=== PATIENT | female | born 1960 | race American Indian/Alaskan Native ===

== ENCOUNTER 2016-09-17 18:14 | Inpatient (IN) | payer MEDICARE ==
[2016-09-17 19:39] LABS: Basophils % (Auto) 1.3 % (0.0-1.8); Eosinophils % (Auto) 0.4 % (0.0-4.3); Hemoglobin 16.2 gm/dl (10.1-14.3); Mean Corpuscular HGB Conc 34 % (30-34); Mean Corpuscular Hemoglobin 34 pg (28-32); Mean Corpuscular Volume 99 fl (79-97); Platelet Count 127 K/mm3 (140-440); Red Blood Count 4.84 M/mm3 (3.65-5.03); Red Cell Distribution Width 13.5 % (13.2-15.2); White Blood Count 4.6 K/mm3 (4.5-11.0)
[2016-09-17 19:49] LABS: INR 1.25 (0.87-1.13)
[2016-09-17 19:50] LABS: Partial Thromboplastin Time 26.2 Sec. (24.2-36.6)
[2016-09-17 19:52] LABS: Anion Gap 23 mmol/L; BUN/Creatinine Ratio 15.83; Blood Urea Nitrogen 19 mg/dL (7-17); Carbon Dioxide 21 mmol/L (22-30); Chloride 94.3 mmol/L (98-107); Glucose 88 mg/dL (65-100); Potassium 3.5 mmol/L (3.6-5.0); Sodium 135 mmol/L (137-145)
[2016-09-17] MEDS ORDERED: BENADRYL ONE (20:40)
--- NOTE | 2016-09-17 21:14 | Cat Scan Report ---
FINAL REPORT PROCEDURE: CT ANGIO CHEST TECHNIQUE: Computerized tomographic angiography of the chest was performed after the IV injection of iodinated nonionic contrast including image processing. The image data was postprocessed using 2-dimensional multiplanar reformatted (MPR) and 3-dimensional (MIP and/or volume rendered) techniques. HISTORY: Chest pain COMPARISON: No prior studies are available for comparison. FINDINGS: Heart and pericardium: No pericardial effusion or thickening. The heart is mildly enlarged. Thoracic aorta: Mild atherosclerotic calcification. No aneurysm or dissection. Pulmonary vasculature: The main pulmonary artery is prominent in caliber.. Lymph nodes: No enlarged thoracic lymph nodes. Lungs: Normal. Pleural space: No effusion, thickening, or pneumothorax. Musculoskeletal structures: No significant abnormality. Upper abdominal structures: No significant abnormality. IMPRESSION: No evidence of pulmonary emboli. The main pulmonary artery is prominent in caliber, which can be seen with pulmonary arterial hypertension
[2016-09-17] MEDS ORDERED: BENADRYL IV ONE (21:18)
[2016-09-17] MEDS ORDERED: LASIX IV ONE (22:05)
[2016-09-17] MEDS ORDERED: NITRO-BID 2% TP ONE (22:05)
[2016-09-17] MEDS ORDERED: ASPIRIN PO ONE (22:14)
--- NOTE | 2016-09-17 22:14 | Emergency Department Report ---
ED Chest Pain HPI - General Chief Complaint: Chest Pain Stated Complaint: CHEST PAIN Time Seen by Provider: 09/17/16 18:58 Source: patient, EMS Mode of arrival: Stretcher Limitations: No Limitations - History of Present Illness MD Complaint: chest pain -: Gradual Onset: during rest, during exertion, awoke with symptoms Pain Location: substernal, left chest Pain Radiation: none Severity: moderate Severity scale (0 -10): 7 Quality: tightness, aching, heaviness Consistency: constant Improves With: nothing Worsens With: nothing re: dyspnea. denies: nausea, vomting, diaphoresis Other Symptoms: denies: cough, fever, syncope, rash, acid taste in mouth, leg swelling, palpitations, burping Treatments Prior to Arrival: none - Related Data On Oral Contraceptives: No Previous Rx's Medication Instructions Recorded Last Taken Type Cyclobenzaprine HCl [FLEXERIL] 5 mg PO TID #21 tablet 01/23/13 01/26/13 10:00 Rx 5 Hydrochlorothiazide [HCTZ] 25 mg PO QDAY #30 tablet 01/27/13 01/26/13 19:00 Rx Metoprolol [Lopressor TAB] 50 mg PO BID #60 tablet 01/27/13 01/29/13 10:00 Rx ALPRAZolam [Xanax TAB] 0.5 mg PO Q6H PRN #60 tablet 02/23/13 Unknown Rx Budesonide [Pulmicort Respules] 0.5 mg IH Q12HRT #60 nebu 02/23/13 Unknown Rx Ipratropium/Albuterol Sulfate 1 ampul IH Q6HRT #100 ampul.neb 02/23/13 Unknown Rx [DUONEB *Not for PRN Use*] Lisinopril [Zestril TAB] 10 mg PO BID #60 tablet 02/23/13 Unknown Rx Metoprolol [Lopressor TAB] 50 mg PO BID #60 tablet 02/23/13 Unknown Rx Morphine ER [Ms Contin ER] 15 mg PO Q8HR #30 tablet 02/23/13 Unknown Rx Potassium Chloride [K-Dur] 10 meq PO QDAY #30 tablet 02/23/13 Unknown Rx guaiFENesin [Robitussin] 200 mg PO Q4H PRN #100 oral.liqd 02/23/13 Unknown Rx oxyCODONE /ACETAMINOPHEN [Percocet 1 tab PO Q4H PRN #30 tablet 02/23/13 Unknown Rx 5/325 mg] Allergies Allergy/AdvReac Type Severity Reaction Status Date / Time Iodinated Contrast Media - Allergy Hives Verified 01/22/13 18:53 IV Dye Heart Score - HEART Score History: Moderately suspicious EKG: Non-specific Age: 45-65 Risk factors: 1-2 risk factors Troponin: < normal limit HEART Score: 4 ED Review of Systems ROS: Stated complaint: CHEST PAIN Other details as noted in HPI Comment: All other systems reviewed and negative ED Past Medical Hx - Past Medical History Previous Medical History?: Yes Hx Hypertension: Yes Hx Heart Attack/AMI: No Hx Congestive Heart Failure: Yes Hx Diabetes: Yes Hx Deep Vein Thrombosis: Yes Hx Pulmonary Embolism: Yes Hx Liver Disease: No Hx Renal Disease: Yes (recent ARF with rhabdomyolysis but currently resolved ) Hx Sickle Cell Disease: No Hx Seizures: No Hx Asthma: Yes (pt states no but has been using inhaler ) Hx COPD: No Hx HIV: No Additional medical history: AAA, afib - Surgical History Hx Pacemaker: No Hx Internal Defibrillator: No Additional Surgical History: AAA, blood clot in right leg, left rotator cuff surgery, torn meniscus in left knee - Social History Smoking Status: Current Some Day Smoker Substance Use Type: Alcohol - Medications Home Medications: Home Medications Medication Instructions Recorded Confirmed Last Taken Type Cyclobenzaprine HCl [FLEXERIL] 5 mg PO TID #21 tablet 01/23/13 01/30/13 10:00 Rx 5 Hydrochlorothiazide [HCTZ] 25 mg PO QDAY #30 tablet 01/27/13 01/30/13 01/26/13 19:00 Rx Metoprolol [Lopressor TAB] 50 mg PO BID #60 tablet 01/27/13 01/30/13 01/29/13 10 :00 Rx ALPRAZolam [Xanax TAB] 0.5 mg PO Q6H PRN #60 tablet 02/23/13 Unknown Rx Budesonide [Pulmicort Respules] 0.5 mg IH Q12HRT #60 nebu 02/23/13 Unknown Rx Ipratropium/Albuterol Sulfate 1 ampul IH Q6HRT #100 ampul.neb 02/23/13 Unknown Rx [DUONEB *Not for PRN Use*] Lisinopril [Zestril TAB] 10 mg PO BID #60 tablet 02/23/13 Unknown Rx Metoprolol [Lopressor TAB] 50 mg PO BID #60 tablet 02/23/13 Unknown Rx Morphine ER [Ms Contin ER] 15 mg PO Q8HR #30 tablet 02/23/13 Unknown Rx Potassium Chloride [K-Dur] 10 meq PO QDAY #30 tablet 02/23/13 Unknown Rx guaiFENesin [Robitussin] 200 mg PO Q4H PRN #100 oral.liqd 02/23/13 Unknown Rx oxyCODONE /ACETAMINOPHEN [Percocet 1 tab PO Q4H PRN #30 tablet 02/23/13 Unknown Rx 5/325 mg] ED Physical Exam - General Limitations: No Limitations General appearance: alert, in no apparent distress - Head Head exam: Present: atraumatic, normocephalic - Eye Eye exam: Present: normal appearance - ENT ENT exam: Present: mucous membranes moist - Neck Neck exam: Present: normal inspection - Respiratory Respiratory exam: Present: normal lung sounds bilaterally. Absent: respiratory distress, wheezes, rales - Cardiovascular Cardiovascular Exam: Present: regular rate, normal rhythm. Absent: systolic murmur, diastolic murmur, rubs, gallop - GI/Abdominal GI/Abdominal exam: Present: soft, normal bowel sounds - Extremities Exam Extremities exam: Present: normal inspection - Back Exam Back exam: Present: normal inspection - Neurological Exam Neurological exam: Present: alert, oriented X3 - Psychiatric Psychiatric exam: Present: normal affect, normal mood - Skin Skin exam: Present: warm, dry, intact, normal color. Absent: rash ED Course Vital Signs 09/17/16 09/17/16 09/17/16 18:34 18:40 18:48 Temperature 98.7 F Pulse Rate 95 H Respiratory 22 Rate Blood Pressure 151/78 151/78 O2 Sat by Pulse 98 97 98 Oximetry 09/17/16 09/17/16 09/17/16 18:50 19:00 19:10 Temperature Pulse Rate 88 Respiratory 25 H Rate Blood Pressure 152/83 146/64 146/64 O2 Sat by Pulse 97 97 98 Oximetry 09/17/16 09/17/16 09/17/16 19:20 19:30 19:40 Temperature Pulse Rate 95 H 87 87 Respiratory 30 H 25 H 26 H Rate Blood Pressure 155/68 144/76 144/76 O2 Sat by Pulse 98 98 Oximetry 09/17/16 09/17/16 09/17/16 19:50 20:00 20:31 Temperature 98.3 F Pulse Rate Respiratory 17 15 17 Rate Blood Pressure 142/74 134/75 O2 Sat by Pulse 98 96 Oximetry DAVE score - Dave Score Age > 65: (0) No Aspirin use within the Past 7 Days: (0) No 3 or more CAD Risk Factors: (1) Yes 2 or more Angina events in past 24 hrs: (1) Yes Known CAD with more than 50% Stenosis: (1) Yes Elevated Cardiac Markers: (0) No ST Deviation Greater than 0.5mm: (0) No DAVE Score: 3 ED Medical Decision Making - Lab Data Result diagrams: 09/17/16 19:22 09/17/16 19:22 - EKG Data -: EKG Interpreted by Me - EKG Data Interpretation: no acute changes - Radiology Data Radiology results: report reviewed, image reviewed - Medical Decision Making patient will need admission for pulmonary edema and chf , enzymes negative and chest ct negative , talked and discuss case with hospitalist and agree with plan for admission' Critical care time in (mins) excluding proc time.: 45 Critical care attestation.: If time is entered above; I have spent that time in minutes in the direct care of this critically ill patient, excluding procedure time. ED Disposition Clinical Impression: CHF (congestive heart failure), DVT prophylaxis, Chest pain Disposition: OP ADMIT IP TO THIS HOSP Is pt being admited?: Yes Does the pt Need Aspirin: Yes Condition: Good Instructions: Chest Pain (ED) Referrals: PRIMARY CARE, [Primary Care Provider] - 3-5 Days Time of Disposition: 22:14
--- NOTE | 2016-09-17 22:58 | History and Physical Report ---
History of Present Illness Date of examination: 09/17/16 Date of admission: 09/17/16 Chief complaint: Chest pain and shortness of breath History of present illness: Patient is 56-year-old with history of CHF, diabetes, hypertension,abdominal aortic aneurysm s/p repair. She presents with chest pain and shortness of breath for 2 days. Chest pain is 6 out of 10, sharp, midsternal pain with no radiation. Shortness of breath is present sometimes at rest and worse on exertion. She has a chronic extensive cardiac history but states she has not taken any of her medications in more than 2 years. In emergency department she was found to have CHF exacerbation. She was given Lasix and is being admitted for further management. Past History Past Medical History: CAD, diabetes, DVT, heart failure, hypertension, other ( AAA s/p repair, PTSD, Depression) Past Surgical History: hysterectomy, Other (AAA repair in 2008, rotator cuff surgery, knee surgery) Social history: single, smoking, alcohol abuse, full code Family history: hypertension, other (Mother AAA) Medications and Allergies Allergies Allergy/AdvReac Type Severity Reaction Status Date / Time Iodinated Contrast Media - Allergy Hives Verified 01/22/13 18:53 IV Dye Review of Systems All systems: negative (no headache, no fever, no cough, no abdominal pain. All other systems reviewed and are negative) Exam - Physical Exam Narrative exam: Gen appearance: Not in acute distress HEENT: normocephalic, atraumatic Neck:supple, no JVD, DEN Lungs: Bibasilar crackles, no wheezes Heart :S1 and S2 regular, no murmurs, rubs or gallop Abdomen: Soft, non-tender, non-distended, normal bowel sounds. Extremities : No edema no clubbing or cyanosis Neuro: Awake, alert oriented 3, normal speech, no focal neurological signs - Constitutional Vitals: Temp Pulse Resp BP Pulse Ox 98.3 F 88 17 136/73 96 09/17/16 20:31 09/17/16 22:25 09/17/16 20:31 09/17/16 22:25 09/17/16 20:31 Results - Labs CBC & Chem 7: 09/18/16 04:02 09/18/16 04:02 Labs: Abnormal lab results 09/17/16 09/17/16 09/17/16 Range/Units 19:22 19:22 19:22 Hgb 16.2 H (10.1-14.3) gm/dl Hct 48.0 H (30.3-42.9) % MCV 99 H (79-97) fl MCH 34 H (28-32) pg Plt Count 127 L (140-440) K/mm3 Wallace % (Auto) 8.0 H (0.0-7.3) % PT 15.6 H (12.2-14.9) Sec. INR 1.25 H (0.87-1.13) Sodium 135 L (137-145) mmol/L Potassium 3.5 L (3.6-5.0) mmol/L Chloride 94.3 L (98-107) mmol/L Carbon Dioxide 21 L (22-30) mmol/L BUN 19 H (7-17) mg/dL NT-Pro-B Natriuret Pep (0-900) pg/mL 09/17/16 Range/Units 19:22 Hgb (10.1-14.3) gm/dl Hct (30.3-42.9) % MCV (79-97) fl MCH (28-32) pg Plt Count (140-440) K/mm3 Wallace % (Auto) (0.0-7.3) % PT (12.2-14.9) Sec. INR (0.87-1.13) Sodium (137-145) mmol/L Potassium (3.6-5.0) mmol/L Chloride (98-107) mmol/L Carbon Dioxide (22-30) mmol/L BUN (7-17) mg/dL NT-Pro-B Natriuret Pep 2075 H (0-900) pg/mL Assessment and Plan Chest pain. To rule out acute coronary syndrome. Admit to telemetry. Troponins negative. Initial Aspirin given in ambulance. Acute on chronic systolic heart failure. She presented shortness of breath. Give Lasix IV. Lopressor po, Lisinopril. Obtain echocardiogram. Consult cardiology. Diabetes mellitus type II. Check hemoglobin A1c. Fingerstick glucose before every meal and at bedtime. Patient states he has not been on any medications for more than 2 years. Hypertension. Give metoprolol, Lisinopril. Hyponatremia. Recheck in am Hypokalemia. Replace orally, and recheck Abdominal aortic aneurysm, s/p repair in 2008 DVT prophylaxis with heparin Full CODE STATUS Medical non-compliance. I discussed with her the importance of compliance. Patient had not taken her medications in more than 2 years
[2016-09-17] MEDS ORDERED: ZOFRAN IV PRN (23:00)
[2016-09-17] MEDS ORDERED: TYLENOL PO PRN (23:00)
[2016-09-17] MEDS ORDERED: ALUM-MAG HYDROX-SIMETH 200-200-20MG/5ML PO PRN (23:00)
[2016-09-17] MEDS ORDERED: SODIUM CHLORIDE FLUSH SYRINGE 10 ML IV PRN (23:06)
[2016-09-17] MEDS ORDERED: NITROSTAT SL PRN (23:06)
[2016-09-18] MEDS: MORPHINE IV PRN ×2 (00:17→07:03)
[2016-09-18] MEDS ORDERED: AMBIEN PO ONE (02:27)
[2016-09-18 04:39] LABS: Basophils % (Auto) 1.2 % (0.0-1.8); Eosinophils % (Auto) 1.3 % (0.0-4.3); Hematocrit 47.7 % (30.3-42.9); Hemoglobin 15.9 gm/dl (10.1-14.3); Mean Corpuscular HGB Conc 33 % (30-34); Mean Corpuscular Hemoglobin 33 pg (28-32); Mean Corpuscular Volume 99 fl (79-97); Platelet Count 121 K/mm3 (140-440); Red Cell Distribution Width 13.6 % (13.2-15.2); White Blood Count 5.7 K/mm3 (4.5-11.0)
[2016-09-18 04:57] LABS: BUN/Creatinine Ratio 16.66; Calcium 9.1 mg/dL (8.4-10.2); Chloride 96.5 mmol/L (98-107); Potassium 3.7 mmol/L (3.6-5.0)
[2016-09-18] MEDS: K-DUR PO SCH ×2 (05:00→10:43)
[2016-09-18] MEDS ORDERED: LASIX IV SCH (06:00)
[2016-09-18] MEDS: HEPARIN SUB-Q SCH ×3 (06:11→22:45)
--- NOTE | 2016-09-18 07:53 | XRay Report ---
Single view chest: History: Chest pain. Findings: Cardiomegaly. Trachea is midline. No consolidation, pneumothorax or pleural effusion. Impression: No acute cardiopulmonary findings.
[2016-09-18] MEDS: LOPRESSOR PO SCH ×3 (10:38→22:45)
[2016-09-18] MEDS: ECOTRIN PO SCH (10:38)
[2016-09-18] MEDS: ZESTRIL PO SCH (10:39)
[2016-09-18] MEDS ORDERED: PNEUMOVAX 23 IM ONE (12:00)
--- NOTE | 2016-09-18 12:06 | Consultation ---
History of Present Illness Consult date: 09/18/16 Requesting physician: AMY MURILLO Consult reason: chest pain, congestive heart failure History of present illness: The patient is a rather poor historian. Her story is rather tangential and convoluted. She tends to describe events which occurred remotely years ago as part of her history and then relates them to presumed diagnoses. It appears that her major complaint this time is lightheadedness which began a few days ago associated with presyncope. She describes a fear of falling. There is no syncope per se. She also describes chronic exertional dyspnea as well as what appears to be chronic orthopnea. She describes palpitations which appears to be chronic as well. She denies chest pain. Chest CTA at presentation showed no evidence of pulmonary embolism. Her chest x-ray did not reveal any infiltrates. Echocardiogram in March 2014 reportedly showed an ejection fraction of 55-60% with LVH. Past History Past Medical History: atrial fib, arrhythmia (history of paroxysmal atrial fibrillation according to records), CAD, diabetes, DVT (and pulmonary embolism) , heart failure, hypertension, other (PTSD, depression, anxiety, normal coronary arteries in May 2013) Past Surgical History: hysterectomy, Other (AAA repair in 2008, rotator cuff surgery, knee surgery) Social history: single, smoking, alcohol abuse, full code Family history: hypertension, other (Mother AAA) Medications and Allergies Allergies Allergy/AdvReac Type Severity Reaction Status Date / Time Iodinated Contrast Media - Allergy Hives Verified 01/22/13 18:53 IV Dye Active Meds: Active Medications Acetaminophen (Tylenol) 650 mg PO Q4H PRN PRN Reason: Pain MILD(1-3)/Fever >100.5/CORTES Al Hydrox/Mg Hydrox/Simethicone (Alum-Mag Hydrox-Simeth [id number]/5ml) 30 ml PO Q4H PRN PRN Reason: Indigestion Aspirin (Ecotrin) 325 mg PO QDAY [facility] Last Admin: 09/18/16 10:38 Dose: 325 mg Furosemide (Lasix) 40 mg IV BID@0600,1800 [facility] Last Admin: 09/18/16 06:10 Dose: 40 mg Heparin Sodium (Porcine) (Heparin) 5,000 unit SUB-Q Q8HR [facility] Last Admin: 09/18/16 06:11 Dose: 5,000 unit Lisinopril (Zestril) 10 mg PO QDAY [facility] Last Admin: 09/18/16 10:39 Dose: Not Given Metoprolol Tartrate (Lopressor) 25 mg PO BID [facility] Last Admin: 09/18/16 10:38 Dose: 25 mg Morphine Sulfate (Morphine) 2 mg IV Q4H PRN PRN Reason: Pain, Moderate (4-6) Last Admin: 09/18/16 07:03 Dose: 2 mg Nitroglycerin (Nitrostat) 0.4 mg SL Q5M PRN PRN Reason: Chest Pain Ondansetron HCl (Zofran) 4 mg IV Q6H PRN PRN Reason: nausea or vomiting Pneumococcal Polyvalent Vaccine (Pneumovax 23) 0.5 ml IM .ONCE ONE Stop: 09/18/16 12:01 Sodium Chloride (Sodium Chloride Flush Syringe 10 Ml) 10 ml IV PRN PRN PRN Reason: LINE FLUSH Review of Systems Constitutional: no fever, no chills Ears, nose, mouth and throat: no ear pain, no ear discharge, no sore throat Cardiovascular: orthopnea, palpitations, lightheadedness, shortness of breath, no chest pain, no edema Respiratory: shortness of breath, dyspnea on exertion, no cough, no hemoptysis Gastrointestinal: no abdominal pain, no nausea, no vomiting, no diarrhea, no constipation Genitourinary Female: no dysuria, no urinary frequency Rectal: no pain, no bleeding Musculoskeletal: no neck stiffness, no neck pain, no myalgias Neurological: no weakness, no parathesias, no numbness, no tingling, no headaches Endocrine: no cold intolerance, no heat intolerance Hematologic/Lymphatic: no easy bruising, no easy bleeding Allergic/Immunologic: no urticaria, no wheezing Physical Examination Vital Signs Last Vital Signs Temp 97.8 F 09/18/16 10:12 Pulse 72 09/18/16 10:38 Resp 16 09/18/16 10:12 BP 123/56 09/18/16 10:39 Pulse Ox 97 09/18/16 10:12 General appearance: no acute distress HEENT: Positive: EOMI, Normocephaly, Mucus Membranes Moist Neck: Positive: neck supple, trachea midline Cardiac: Positive: Reg Rate and Rhythm, S1/S2 Lungs: Positive: clear to auscultation Neuro: Positive: Grossly Intact Abdomen: Positive: Soft, Active Bowel Sounds. Negative: Tender Skin: Positive: Clear. Negative: Rash Musculoskeletal: Normal Range of Motion Extremities: Present: normal. Absent: edema Results 09/18/16 04:02 09/18/16 04:02 CBC 09/18/16 Range/Units 04:02 WBC 5.7 (4.5-11.0) K/mm3 RBC 4.80 (3.65-5.03) M/mm3 Hgb 15.9 H (10.1-14.3) gm/dl Hct 47.7 H (30.3-42.9) % Plt Count 121 L (140-440) K/mm3 Lymph # 2.2 (1.2-5.4) K/mm3 Chase # 0.5 (0.0-0.8) K/mm3 Eos # 0.1 (0.0-0.4) K/mm3 Baso # 0.1 (0.0-0.1) K/mm3 Comprehensive Metabolic Panel 09/18/16 Range/Units 04:02 Sodium 136 L (137-145) mmol/L Potassium 3.7 (3.6-5.0) mmol/L Chloride 96.5 L (98-107) mmol/L Carbon Dioxide 20 L (22-30) mmol/L BUN 20 H (7-17) mg/dL Creatinine 1.2 (0.7-1.2) mg/dL Glucose 80 (65-100) mg/dL Calcium 9.1 (8.4-10.2) mg/dL - Imaging and Cardiology EKG: image reviewed EKG interpretations - Telemetry EKG Rhythm: Sinus Rhythm - EKG Sinus rhythms and dysrhythmias: sinus rhythm Chamber hypertrophy or enlargement: left atrial enlargement Assessment and Plan I will be cautious with the use of diuretics since she does not appear to be significantly volume overloaded. Obtain orthostatic parameters. Obtain echocardiogram. - Patient Problems (1) Lightheadedness Current Visit: Yes Status: Acute (2) Exertional dyspnea Current Visit: Yes Status: Chronic (3) Anxiety disorder Current Visit: Yes Status: Chronic Qualifiers: Anxiety disorder type: generalized anxiety disorder Qualified Code(s): F41.1 - Generalized anxiety disorder (4) Normal coronary arteries Current Visit: Yes Status: Chronic (5) Hypertension Current Visit: Yes Status: Chronic Qualifiers: Hypertension type: essential hypertension Qualified Code(s): I10 - Essential (primary) hypertension (6) Diabetes mellitus Current Visit: Yes Status: Chronic Qualifiers: Diabetes mellitus complication status: D Diabetes mellitus complication detail: D Diabetic retinopathy severity: D Proliferative retinopathy type: P Diabetes mellitus macular edema: D Diabetes mellitus long term care phlebotomist insulin use : D Laterality: L Chronic kidney disease stage: C (7) History of posttraumatic stress disorder (PTSD) Current Visit: Yes Status: Chronic
[2016-09-18] MEDS: XANAX PO PRN ×2 (13:54→23:29)
--- NOTE | 2016-09-18 16:06 | Admit Criteria Form ---
Admission Criteria Documentation: HEART FAILURE: COMMON COMPLICATIONS Clinical Indications for Inpatient Care ([place]/check or initial the applicable condition/criteria): Ongoing inpatient care may be indicated for heart failure with 1 or more of the following (1)(2)(3)(4)(5)(6)(7)(8): [ ]I. New-onset heart failure [ ]II. Acute cardiac ischemia causing or associated with failure [ ]III. Ongoing need for care for primary condition requiring frequent therapy adjustments because of changes in cardiac function (eg, drug dosage changes for drugs that are renally metabolized) [X ]IV. Complications of heart failure, including 1 or more of the following: [ ]a) Hemodynamic instability [ ]b) Pericardial effusion [ ]c) Symptomatic pleural effusion(16) [ ]d) Hypoxemia [ ]e) Tachypnea [X ]f) Dyspnea [ ]g) Syncope [ ]h) Altered mental status [ ]i) Acute renal insufficiency that is severe (reduction of more than 50% in estimated glomerular filtration rate from baseline) or progressive (reduction of more than 25% in estimated glomerular filtration rate from baseline, with creatinine continuing to rise) [ ]j) Debilitating anasarca (eg tissue breakdown with infection, inability to void due to edema)(E) (17) [ ]k) Clinically significant metabolic abnormalities due to heart failure (e.g., new-onset metabolic acidosis) Extended stay may be needed until ALL of the following are present(1)(3)(18)(41) (55): [ ]a) Hemodynamic stability [ ]b) Stable and effective diuretic regimen established (or patient on stable dialysis regimen if in chronic renal failure) [ ]c) Volume status acceptable on oral medication [ ]d) Breathing comfortably at rest [ ]e) Saturation of arterial oxygen greater than 90% or at acceptable baseline [ ]f) Pulmonary edema absent or improved [ ]g) Peripheral or sacral edema absent or improved [ ]h) Renal function stable and manageable at a lower level of care [ ]i) Complications (e.g., pleural effusion) resolved or manageable at a lower level of care [ ]j) Patient or caregiver has received written discharge instructions or educational material addressing activity level, diet, discharge medications, follow-up appointment, weight monitoring, and what to do if symptoms worsen. (56)(57)(58) The original [facility] [employer] ([email or web address]) content created by Rush Espino has been revised. The portions of the content which have been revised are identified through the use of italic text or in bold, and Rush Espino has neither reviewed nor approved the modified material.All other unmodified content is copyright [email or web address] [email or web address]. Please see references footnoted in the original [facility] edition 2017 Admission Criteria Met: Yes
--- NOTE | 2016-09-18 16:51 | Progress Note ---
Assessment and Plan Chest pain. Troponins negative. Initial Aspirin given in ambulance. cont aspirin and statin 2d echo ordered Acute on chronic systolic heart failure. She presented shortness of breath. Give Lasix IV. Lopressor and Lisinopril po. Obtained echocardiogram, result pending. Consulted cardiology. Diabetes mellitus type II. Check hemoglobin A1c. Fingerstick glucose before every meal and at bedtime. Patient states he has not been on any medications for more than 2 years. Hypertension. cont metoprolol, Lisinopril. Hyponatremia. improved, cont to monitor Hypokalemia. Replaced and monitor Abdominal aortic aneurysm, s/p repair in 2008 right foot pain - likely from neuropathy, will get venous doppler for possible DVT - will place her on neurontin DVT prophylaxis with heparin Full CODE STATUS Subjective Date of service: 09/18/16 Interval history: pt seen and examined c/o rt leg pain also states that she has difficulty to walk states she could not take the medication because she lost insurance and could not afford Objective - Constitutional Vitals: Vital Signs - 12hr 09/18/16 09/18/16 09/18/16 05:46 09:00 10:00 Temperature 98.0 F Pulse Rate 72 66 Respiratory 20 Rate Blood Pressure 114/68 O2 Sat by Pulse 98 99 Oximetry 09/18/16 09/18/16 09/18/16 10:12 10:38 10:39 Temperature 97.8 F Pulse Rate 72 72 Respiratory 16 Rate Blood Pressure 123/56 123/56 123/56 O2 Sat by Pulse 97 Oximetry 09/18/16 12:51 Temperature 97.7 F Pulse Rate 71 Respiratory 16 Rate Blood Pressure 142/86 O2 Sat by Pulse 97 Oximetry General appearance: Present: no acute distress, well-nourished - EENT Eyes: PERRL, EOM intact ENT: hearing intact, clear oral mucosa Ears: bilateral: normal - Neck Neck: supple, normal ROM - Respiratory Respiratory effort: normal Respiratory: bilateral: CTA - Breasts Breasts: normal - Cardiovascular Rhythm: regular Heart Sounds: Present: S1 & S2. Absent: gallop, rub Extremities: pulses intact, No edema, normal color, Full ROM - Gastrointestinal General gastrointestinal: Present: soft, non-tender, non-distended, normal bowel sounds - Integumentary Integumentary: clear, warm, dry - Musculoskeletal Musculoskeletal: strength equal bilaterally, other (rt feet tenderness) - Neurologic Neurologic: moves all extremities - Psychiatric Psychiatric: memory intact, appropriate mood/affect, intact judgment & insight - Labs CBC & Chem 7: 09/18/16 04:02 09/18/16 04:02 Labs: Abnormal lab results 09/18/16 09/18/16 Range/Units 04:02 04:02 Hgb 15.9 H (10.1-14.3) gm/dl Hct 47.7 H (30.3-42.9) % MCV 99 H (79-97) fl MCH 33 H (28-32) pg Plt Count 121 L (140-440) K/mm3 Lymph % (Auto) 38.5 H (13.4-35.0) % [place] % (Auto) 9.5 H (0.0-7.3) % Sodium 136 L (137-145) mmol/L Chloride 96.5 L (98-107) mmol/L Carbon Dioxide 20 L (22-30) mmol/L BUN 20 H (7-17) mg/dL
[2016-09-18] MEDS ORDERED: ROBITUSSIN AC PO PRN (20:40)
[2016-09-19] MEDS: MORPHINE IV PRN ×2 (04:32→23:06)
[2016-09-19] MEDS: HEPARIN SUB-Q SCH ×3 (06:50→23:04)
[2016-09-19] MEDS: LOPRESSOR PO SCH ×2 (09:04→23:04)
[2016-09-19] MEDS: ECOTRIN PO SCH (09:04)
[2016-09-19] MEDS: ZESTRIL PO SCH (09:05)
[2016-09-19] MEDS: XANAX PO PRN ×2 (11:09→23:04)
[2016-09-19] MEDS: PROVENTIL IH PRN ×2 (11:16→18:58)
--- NOTE | 2016-09-19 13:35 | Progress Note ---
Assessment and Plan Due to her mild LV systolic dysfunction, will perform Lexiscan stress MPI in a.m. - Patient Problems (1) Lightheadedness Current Visit: Yes Status: Acute (2) Exertional dyspnea Current Visit: Yes Status: Chronic (3) Left ventricular systolic dysfunction Current Visit: Yes Status: Acute (4) Anxiety disorder Current Visit: Yes Status: Chronic Qualifiers: Anxiety disorder type: generalized anxiety disorder Qualified Code(s): F41.1 - Generalized anxiety disorder (5) Normal coronary arteries Current Visit: Yes Status: Chronic (6) Hypertension Current Visit: Yes Status: Chronic Qualifiers: Hypertension type: essential hypertension Qualified Code(s): I10 - Essential (primary) hypertension (7) Diabetes mellitus Current Visit: Yes Status: Chronic Qualifiers: Diabetes mellitus type: D Diabetes mellitus complication status: D Diabetes mellitus complication detail: D Diabetic retinopathy severity: D Proliferative retinopathy type: P Diabetes mellitus macular edema: D Diabetes mellitus nursing home insulin use: D Laterality: L Chronic kidney disease stage: C (8) History of posttraumatic stress disorder (PTSD) Current Visit: Yes Status: Chronic Subjective Date of service: 09/19/16 Principal diagnosis: dizzines, dypnea Interval history: She feels slightly better. She still has intermittent lightheadedness. Exertional dyspnea seems better. We discussed her echocardiogram which showed an ejection fraction of 40-45 percent. Objective Vital Signs Temp Pulse Pulse Pulse Resp Resp BP 09/19/16 11:17 68 18 09/19/16 11:05 67 18 09/19/16 10:00 09/19/16 08:32 97.3 F L 67 16 125/72 09/19/16 04:59 97.4 F L 65 16 131/68 09/19/16 01:16 97.8 F 64 16 120/65 09/19/16 01:00 65 09/18/16 22:45 68 116/62 09/18/16 22:00 66 09/18/16 21:29 97.6 F 66 14 116/62 09/18/16 17:30 97.8 F 73 18 141/71 09/18/16 17:00 60 Pulse Ox 09/19/16 11:17 09/19/16 11:05 09/19/16 10:00 100 09/19/16 08:32 100 09/19/16 04:59 09/19/16 01:16 100 09/19/16 01:00 09/18/16 22:45 09/18/16 22:00 100 09/18/16 21:29 100 09/18/16 17:30 98 09/18/16 17:00 - Physical Examination General: No Apparent Distress HEENT: Positive: EOMI, Normocephaly, Mucus Membranes Moist Neck: Positive: neck supple, trachea midline Cardiac: Positive: Reg Rate and Rhythm, S1/S2 Lungs: Positive: clear to auscultation Neuro: Positive: Grossly Intact Abdomen: Positive: Soft, Active Bowel Sounds. Negative: Tender Skin: Positive: Clear. Negative: Rash Musculoskeletal: Normal Range of Motion Extremities: Present: normal. Absent: edema - Imaging and Cardiology EKG: image reviewed - EKG Sinus rhythms and dysrhythmias: sinus rhythm Chamber hypertrophy or enlargement: left atrial enlargement
[2016-09-20] MEDS: MORPHINE IV PRN ×2 (06:12→21:38)
[2016-09-20] MEDS: HEPARIN SUB-Q SCH ×3 (06:12→21:41)
[2016-09-20] MEDS ORDERED: LEXISCAN IV ONE ×2 (08:19→10:15)
--- NOTE | 2016-09-20 10:18 | Progress Note ---
Assessment and Plan Chest pain. Troponins negative. Initial Aspirin given in ambulance. cont aspirin and statin 2d echo showed ef 45% stress test tomorrow Acute on chronic systolic heart failure with EF 45%. She presented shortness of breath. Given Lasix IV. cont Lopressor and Lisinopril po. ess test tomorrow Consulted cardiology. h/o Diabetes mellitus type II. hemoglobin A1c 5.8. Patient states he has not been on any medications for more than 2 years. cont dietary control Hypertension. cont metoprolol, Lisinopril. Hyponatremia. improved, cont to monitor Hypokalemia. Replaced and monitor Abdominal aortic aneurysm, s/p repair in 2008 right foot pain - likely from neuropathy, will follow venous doppler for possible DVT - cont her on neurontin DVT prophylaxis with heparin Full CODE STATUS Subjective Date of service: 09/19/16 Principal diagnosis: dizzines, dypnea Interval history: pt seen and examined c/o rt leg pain and states that she has difficulty to walk refused to participate with PT states she could not take the medication because she lost insurance and could not afford Objective - Constitutional Vitals: Vital Signs - 12hr 09/20/16 09/20/16 09/20/16 00:17 01:00 04:00 Temperature 97.6 F 98.7 F Pulse Rate 68 67 62 Respiratory 14 18 Rate Blood Pressure 109/64 102/62 O2 Sat by Pulse 100 100 Oximetry 09/20/16 08:05 Temperature 97.5 F L Pulse Rate 66 Respiratory 20 Rate Blood Pressure 98/65 O2 Sat by Pulse 99 Oximetry - Labs CBC & Chem 7: 09/18/16 04:02 09/18/16 04:02 Labs: Abnormal lab results 09/19/16 Range/Units 11:15 POC Glucose 112 H (70-105)
--- NOTE | 2016-09-20 10:27 | Discharge Summary ---
Providers - Providers Date of Admission: 09/17/16 23:00 Date of discharge: 09/21/16 Attending physician: MORRIS FISHER 09/17/16 Consult to Cardiac Rehabilitation [CONS] Routine Reason For Exam: Phase I 09/17/16 23:09 Consult to Physician [CONS] Routine Consulting Provider: LÓPEZ PACKER Reason For Exam: Chest pain, CHF Place consult to:: [facility] heart Notified:: indra 09/18/16 15:33 Physical Therapy Evaluation and Treat [CONS] Routine Comment: Reason For Exam: Eval/treat Primary care physician: FLUE LINING DIPPER Hospitalization Condition: Good Hospital course: Patient is 56-year-old with history of CHF, diabetes, hypertension,abdominal aortic aneurysm s/p repair presented with chest pain and shortness of breath for 2 days. She was admitted for further evaluation and management. Discharge diagnosis and management: Chest pain. likely from GERD Troponins negative. cont aspirin and statin 2d echo showed ef 45% stress test was normal CTA chest showed no PE CXR showed no infiltrates placed on protonix for possible GERD Acute on chronic systolic heart failure with EF 45%. She presented with shortness of breath. Improved with Lasix IV. cont metoprolol and Lisinopril po. Consulted cardiology. h/o Diabetes mellitus type II. hemoglobin A1c 5.8. Patient states he has not been on any medications for more than 2 years. cont dietary control Hypertension. cont metoprolol, Lisinopril. Hyponatremia. improved, cont to monitor Hypokalemia. Replaced and monitor Abdominal aortic aneurysm, s/p repair in 2008 Right foot pain - likely from neuropathy, venous doppler was negative - continue her on neurontin Disposition: [facility]/[place] Time spent for discharge: 32 minutes Core Measure Documentation - Palliative Care Palliative Care/ Comfort Measures: Not Applicable - Core Measures Any of the following diagnoses?: heart failure - Heart Failure Discharge Requirements CANDACE/ARB for LVSD if EF <40%: Yes Beta rosana at discharge: Yes Exam - Physical Exam Narrative exam: General appearance: Present: no acute distress, well-nourished - EENT Eyes: PERRL, EOM intact ENT: hearing intact, clear oral mucosa Ears: bilateral: normal - Neck Neck: supple, normal ROM - Respiratory Respiratory effort: normal Respiratory: bilateral: CTA - Breasts Breasts: normal - Cardiovascular Rhythm: regular Heart Sounds: Present: S1 & S2. Absent: gallop, rub Extremities: pulses intact, No edema, normal color, Full ROM - Gastrointestinal General gastrointestinal: Present: soft, non-tender, non-distended, normal bowel sounds - Integumentary Integumentary: clear, warm, dry - Musculoskeletal Musculoskeletal: strength equal bilaterally, other (rt feet tenderness) - Neurologic Neurologic: moves all extremities - Psychiatric Psychiatric: memory intact, appropriate mood/affect, intact judgment & insight - Constitutional Vitals: Temp Pulse Resp BP Pulse Ox 97.5 F L 66 20 98/65 99 09/20/16 08:05 09/20/16 08:05 09/20/16 08:05 09/20/16 08:05 09/20/16 08:05 Plan Activity: up only with assistance Weight Bearing Status: Non-Weight Bearing Diet: low fat, low salt Follow up with: PRIMARY CARE, [Primary Care Provider] - 3-5 Days Prescriptions: AtorvaSTATin [Lipitor] 40 mg PO QHS #30 tablet Aspirin EC [Aspirin Enteric Coated TAB] 81 mg PO QDAY #30 tablet Lisinopril [Zestril TAB] 10 mg PO QDAY #30 tablet Metoprolol [Lopressor TAB] 25 mg PO BID #60 tablet
[2016-09-20] MEDS ORDERED: NACL 0.9% 500 ML 0 ML ONE (10:43)
--- NOTE | 2016-09-20 12:55 | Progress Note ---
Assessment and Plan Reduce CANDACE inhibitor dose due to low BPs. Lexiscan stress MPI this a.m. - Patient Problems (1) Atypical chest pain Current Visit: Yes Status: Acute (2) Lightheadedness Current Visit: Yes Status: Acute (3) Exertional dyspnea Current Visit: Yes Status: Chronic (4) Left ventricular systolic dysfunction Current Visit: Yes Status: Acute (5) Anxiety disorder Current Visit: Yes Status: Chronic Qualifiers: Anxiety disorder type: generalized anxiety disorder Qualified Code(s): F41.1 - Generalized anxiety disorder (6) Normal coronary arteries Current Visit: Yes Status: Chronic (7) Hypertension Current Visit: Yes Status: Chronic Qualifiers: Hypertension type: essential hypertension Qualified Code(s): I10 - Essential (primary) hypertension (8) Diabetes mellitus Current Visit: Yes Status: Chronic Qualifiers: Diabetes mellitus type: D Diabetes mellitus complication status: D Diabetes mellitus complication detail: D Diabetic retinopathy severity: D Proliferative retinopathy type: P Diabetes mellitus macular edema: D Diabetes mellitus long-term insulin use: D Laterality: L Chronic kidney disease stage: C (9) History of posttraumatic stress disorder (PTSD) Current Visit: Yes Status: Chronic Subjective Date of service: 09/20/16 Principal diagnosis: dizzines, dypnea Interval history: She complains of intermittent chest tightness. Borderline to mildly reduced BPs this morning. Objective Vital Signs Temp Pulse Pulse Resp Resp BP Pulse Ox 09/20/16 11:06 72 84/57 09/20/16 11:05 75 91/54 09/20/16 11:04 73 91/56 09/20/16 11:03 76 98/64 09/20/16 11:02 83 106/58 09/20/16 11:01 64 94/53 09/20/16 10:31 57 L 93/65 09/20/16 08:05 97.5 F L 66 20 98/65 99 09/20/16 04:00 98.7 F 62 18 102/62 100 09/20/16 01:00 67 09/20/16 00:17 97.6 F 68 14 109/64 100 09/19/16 20:00 98.7 F 72 18 114/73 100 09/19/16 19:07 75 18 09/19/16 18:59 74 18 99 09/19/16 16:41 97.7 F 85 66 H 107/51 98 - Physical Examination General: No Apparent Distress HEENT: Positive: EOMI, Normocephaly, Mucus Membranes Moist Neck: Positive: neck supple, trachea midline Cardiac: Positive: Reg Rate and Rhythm, S1/S2 Lungs: Positive: clear to auscultation Neuro: Positive: Grossly Intact Abdomen: Positive: Soft, Active Bowel Sounds. Negative: Tender Skin: Positive: Clear. Negative: Rash Musculoskeletal: Normal Range of Motion Extremities: Present: normal. Absent: edema - Imaging and Cardiology EKG: image reviewed - EKG Sinus rhythms and dysrhythmias: sinus rhythm Chamber hypertrophy or enlargement: left atrial enlargement
[2016-09-20] MEDS ORDERED: ZESTRIL PO SCH (12:57)
[2016-09-20] MEDS: ECOTRIN PO SCH (13:09)
[2016-09-20] MEDS: ZESTRIL PO SCH ×2 (13:09→22:10)
[2016-09-20] MEDS: XANAX PO PRN (13:10)
--- NOTE | 2016-09-20 14:14 | Progress Note ---
Assessment and Plan Chest pain. likely from GERD Troponins negative. Initial Aspirin given in ambulance. cont aspirin and statin 2d echo showed ef 45% stress test today was normal placed on protonix Acute on chronic systolic heart failure with EF 45%. She presented shortness of breath. Given Lasix IV. cont Lopressor and Lisinopril po. Consulted cardiology. h/o Diabetes mellitus type II. hemoglobin A1c 5.8. Patient states he has not been on any medications for more than 2 years. cont dietary control Hypertension. cont metoprolol, Lisinopril. Hyponatremia. improved, cont to monitor Hypokalemia. Replaced and monitor Abdominal aortic aneurysm, s/p repair in 2008 right foot pain - likely from neuropathy, venous doppler was negative - cont her on neurontin DVT prophylaxis with heparin Full CODE STATUS Disposition; SNF Subjective Date of service: 09/20/16 Principal diagnosis: dizzines, dypnea Interval history: pt seen and examined c/o rt leg pain and states that she has difficulty to walk refused to participate with PT, wants SNF placement states she could not take the medication because she lost insurance and could not afford Objective - Exam Narrative Exam: General appearance: Present: no acute distress, well-nourished - EENT Eyes: PERRL, EOM intact ENT: hearing intact, clear oral mucosa Ears: bilateral: normal - Neck Neck: supple, normal ROM - Respiratory Respiratory effort: normal Respiratory: bilateral: CTA - Breasts Breasts: normal - Cardiovascular Rhythm: regular Heart Sounds: Present: S1 & S2. Absent: gallop, rub Extremities: pulses intact, No edema, normal color, Full ROM - Gastrointestinal General gastrointestinal: Present: soft, non-tender, non-distended, normal bowel sounds - Integumentary Integumentary: clear, warm, dry - Musculoskeletal Musculoskeletal: strength equal bilaterally, other (rt feet tenderness) - Neurologic Neurologic: moves all extremities - Psychiatric Psychiatric: memory intact, appropriate mood/affect, intact judgment & insight - Constitutional Vitals: Vital Signs - 12hr 09/20/16 09/20/16 09/20/16 04:00 08:05 10:31 Temperature 98.7 F 97.5 F L Pulse Rate 62 66 57 L Respiratory 18 20 Rate Blood Pressure 102/62 98/65 93/65 O2 Sat by Pulse 100 99 Oximetry 09/20/16 09/20/16 09/20/16 11:01 11:02 11:03 Temperature Pulse Rate 64 83 76 Respiratory Rate Blood Pressure 94/53 106/58 98/64 O2 Sat by Pulse Oximetry 09/20/16 09/20/16 09/20/16 11:04 11:05 11:06 Temperature Pulse Rate 73 75 72 Respiratory Rate Blood Pressure 91/56 91/54 84/57 O2 Sat by Pulse Oximetry 09/20/16 12:05 Temperature 97.4 F L Pulse Rate 68 Respiratory 20 Rate Blood Pressure 111/57 O2 Sat by Pulse 100 Oximetry - Labs CBC & Chem 7: 09/18/16 04:02 09/18/16 04:02
[2016-09-20] MEDS: PROTONIX PO SCH (17:55)
[2016-09-20] MEDS: LOPRESSOR PO SCH (22:09)
--- NOTE | 2016-09-21 01:55 | Treadmill Report ---
LEXISCAN STRESS TEST REPORT REASON FOR STUDY: Chest pain. STRESS TEST PROTOCOL: The patient received 0.4 mg of Lexiscan intravenously over 10 seconds. Technetium-99m tetrofosmin was subsequently injected. Baseline EKG, sinus bradycardia. Lexiscan EKG, no diagnostic ischemic changes. She experienced dyspnea with Lexiscan infusion. No chest pain. No arrhythmias. IMPRESSION: Electrocardiographically negative stress test. Nuclear imaging report to follow. JOB# [id number] AGO/NTS
--- NOTE | 2016-09-21 02:02 | Treadmill Report ---
THALLIUM REPORT REASON FOR STUDY: Chest pain and LV systolic dysfunction. IMAGING PROTOCOL: The patient received Tc-99m Tetrofosmin for rest and stress imaging. Imaging for all procedures was performed in the standard fashion. NUCLEAR IMAGING RESULTS: Normal left ventricular cavity size with no change from stress to rest. Distribution of radionuclide within the left ventricle revealed a small area of photo-induction involving the apex. The degree of photo-induction is mild. Rest imaging showed worsening of the defect, suggesting that it is probably artifactual. Gated SPECT imaging revealed normal global LV systolic function with no significant wall motion abnormalities. The calculated left ventricular ejection fraction is 63%. IMPRESSION: Small fixed apical defect, probably artifactual. Normal global LV systolic function with no significant wall motion abnormalities. EF 63%. No evidence of significant stress-induced ischemia or prior infarction. [facility]# [id number] FAZAL/ESTEFANI ROLLE
[2016-09-21] MEDS ORDERED: BENADRYL PO PRN (03:11)
[2016-09-21] MEDS: XANAX PO PRN (05:34)
[2016-09-21] MEDS: HEPARIN SUB-Q SCH ×2 (05:34→14:51)
[2016-09-21 05:48] VITALS: BP 143/70
--- NOTE | 2016-09-21 07:44 | Vascular Lab Report ---
Right Lower Extremity Venous Duplex Study: Reason for Exam: Pain of the right lower extremity. Comments on the Right: All veins visualized are freely compressible without evidence of internal echogenicity. Flow is spontaneous and phasic throughout. No evidence of acute or chronic thrombus is seen in any of the vessels visualized. Comments on the Left: A limited duplex study was done of the proximal veins of the left lower extremity. All veins visualized are freely compressible without evidence of internal echogenicity. Flow is spontaneous and phasic throughout. No evidence of acute or chronic thrombus is seen in any of the vessels visualized. Impression: No evidence of acute or chronic deep venous thrombosis in the right lower extremity.
[2016-09-21] MEDS: ECOTRIN PO SCH (10:03)
[2016-09-21] MEDS: PROTONIX PO SCH (10:04)
[2016-09-21] MEDS: ZESTRIL PO SCH (10:04)
[2016-09-21] MEDS: MORPHINE IV PRN ×2 (10:05→15:00)
--- NOTE | 2016-09-25 14:35 | Query-Kidney Disease ---
Dear Shane Date:____09/25/16 Post Anesthesia Room Nurse/CDS:____Joshhi / Jose Phone#:___[phone] Exercise your independent professional judgment when responding to query. Questions asked do not imply a particular answer is desired or expected. We greatly appreciate your clarification on this issue. Clinical Documentation States: 56 year old female was admitted on 09/17/16 The discharge summary (Dr. Lynn 09/21/16) states " Acute on chronic systolic heart failure with EF 45%. She presented shortness of breath. Given Lasix IV. cont Lopressor and Lisinopril po. ess test tomorrow Consulted cardiology. Hypertension. cont metoprolol, Lisinopril. h/o Diabetes mellitus type II. hemoglobin A1c 5.8. Patient states he has not been on any medications for more than 2 years. cont dietary control " Clinical Findings Show: GFR: 56 Please Clarify if you mean: Acute Renal Failure with or due to: [ ] Tubular Necrosis [ ] Cortical Necrosis [ ] Shock Kidney [ ] Vasomotor Nephropathy [ ] Lower Tubular Nephrosis [ ] Renal Tubular Stasis [ ] Tubular Nephrosis [ ] Medullary Necrosis [ ] Acute Renal Failure (unspecified) [ ] Other: [ ] Comment/Explanation: Chronic Kidney Disease (Please [place] applicable stage) 3 Stages Description GFR [ ] CKD Stage 1 90 mL/min or more [ ] CKD Stage 2 Mild decrease in Kidney function 60 to 89 mL/min [ ] CKD Stage 3 Moderate decrease in kidney function 30-59 [ ] CKD Stage 4 Severe decrease in kidney function 15-29 [ ] CKD Stage 5 Kidney failure; requiring dialysis or transplantation <15 [ ] ESRD Patient requiring dialysis for > 3 months or kidney transplant irrespective of level of GFR; Applicable for 1 year after kidney transplant [ x] Other:__could be prerenal azotemia [ ] Comment/Explanation: Present on Admission: [x ] Yes (Y) [ ] Clinically undeterminable (W) [ ] No (N) Please also document response in your Progress Notes and/or Discharge Summary and indicate if the condition was present on admission MTDD
== END 2016-09-21 17:03 | DRG 391 ==
LOC: ED 18:14 → 4A 23:00
PROVIDERS: ADMIT Internal Medicine; ATTEND Internal Medicine
DX: K21.9 Gastro-esophageal reflux disease without esophagitis (principal); I50.23 Acute on chronic systolic (congestive) heart failure; E87.1 Hypo-osmolality and hyponatremia; I11.0 Hypertensive heart disease with heart failure; E11.9 Type 2 diabetes mellitus without complications; F17.200 Nicotine dependence, unspecified, uncomplicated; I25.10 Atherosclerotic heart disease of native coronary artery without angina pectoris; F43.10 Post-traumatic stress disorder, unspecified; F10.10 Alcohol abuse, uncomplicated; E87.6 Hypokalemia; I71.4 Abdominal aortic aneurysm, without rupture; F41.1 Generalized anxiety disorder; R06.09 Other forms of dyspnea; E11.40 Type 2 diabetes mellitus with diabetic neuropathy, unspecified; Z86.718 Personal history of other venous thrombosis and embolism; Z86.711 Personal history of pulmonary embolism; Z91.041 Radiographic dye allergy status; Z90.710 Acquired absence of both cervix and uterus; Z82.49 Family history of ischemic heart disease and other diseases of the circulatory system; Z91.19 Patient's noncompliance with other medical treatment and regimen; R79.89 Other specified abnormal findings of blood chemistry
CPT/HCPCS: 36415; 71010; 71275; 78452; 80048; 82962; 83036; 83880; 84484; 85025; 85610; 85730; 90732; 93005; 93010; 93017; 93306; 94640; 94760; 96374; A9270-GY; A9502; G8978-GP; G8979-GP; J1200; J1644; J1940; J2270; J2785; J7040; Q9967

== ENCOUNTER 2016-10-08 20:41 | Emergency (ER) | payer MEDICARE ==
[2016-10-08 21:57] LABS: Basophils % (Auto) 1.3 % (0.0-1.8); Eosinophils % (Auto) 0.3 % (0.0-4.3); Hematocrit 46.5 % (30.3-42.9); Mean Corpuscular HGB Conc 34 % (30-34); Mean Corpuscular Hemoglobin 34 pg (28-32); Mean Corpuscular Volume 97 fl (79-97); Platelet Count 230 K/mm3 (140-440); Red Blood Count 4.78 M/mm3 (3.65-5.03); Red Cell Distribution Width 13.5 % (13.2-15.2)
[2016-10-08 22:07] LABS: INR 1.13 (0.87-1.13)
[2016-10-08 22:08] LABS: Partial Thromboplastin Time 28.6 Sec. (24.2-36.6)
[2016-10-08 22:22] LABS: Alanine Aminotransferase 18 units/L (7-56); Albumin 3.8 g/dL (3.9-5); Albumin/Globulin Ratio 0.8 %; Alkaline Phosphatase 66 units/L (35-129); Anion Gap 27 mmol/L; BUN/Creatinine Ratio 14.44; Blood Urea Nitrogen 13 mg/dL (7-17); Calcium 9.1 mg/dL (8.4-10.2); Carbon Dioxide 24 mmol/L (22-30); Chloride 91.4 mmol/L (98-107); Glucose 79 mg/dL (65-100); Potassium 4.1 mmol/L (3.6-5.0); Sodium 138 mmol/L (137-145); Total Protein 8.8 g/dL (6.3-8.2)
[2016-10-09] MEDS ORDERED: NORCO 10/325 PO ONE (00:47)
--- NOTE | 2016-10-09 00:51 | Emergency Department Report ---
HPI - General Chief Complaint: Fall Time Seen by Provider: 10/09/16 00:47 - HPI HPI: Patient is a 56-year-old -[place] female, with multiple medical history , she presents to ED with a fall, LOC 1 day. Patient states she's been falling more frequently lately, and has been back to using a wheelchair due to her feeling unsteady in her feet. Patient denies any chest pain but have multiple aches after her fall complaining of headache complaining of neck pain. ED Past Medical Hx - Past Medical History Previous Medical History?: Yes Hx Hypertension: Yes Hx Heart Attack/AMI: No Hx Congestive Heart Failure: Yes Hx Diabetes: Yes Hx Deep Vein Thrombosis: Yes Hx Pulmonary Embolism: Yes Hx Liver Disease: No Hx Renal Disease: Yes (recent ARF with rhabdomyolysis but currently resolved ) Hx Sickle Cell Disease: No Hx Seizures: No Hx Asthma: Yes (pt states no but has been using inhaler ) Hx COPD: Yes Hx HIV: No Additional medical history: AAA, afib - Surgical History Past Surgical History?: Yes Hx Pacemaker: No Hx Internal Defibrillator: No Additional Surgical History: AAA, blood clot in right leg, left rotator cuff surgery, torn meniscus in left knee - Social History Smoking Status: Current Every Day Smoker Substance Use Type: Alcohol - Medications Home Medications: Home Medications Medication Instructions Recorded Confirmed Last Taken Type methOCARBAMOL [Robaxin TAB] 500 mg PO Q6H PRN #20 tablet 10/09/16 Unknown Rx ED Review of Systems ROS: Stated complaint: FALL/SOB Other details as noted in HPI Comment: All other systems reviewed and negative Gastrointestinal: as per HPI Musculoskeletal: as per HPI, back pain, other Physical Exam - Physical Exam Vital Signs: Vital Signs 10/08/16 10/08/16 21:08 22:59 Temperature 99.1 F Pulse Rate 112 H 99 H Respiratory 20 17 Rate Blood Pressure 157/97 170/83 O2 Sat by Pulse 98 95 Oximetry Physical Exam: - General Limitations: No Limitations General appearance: alert, in no apparent distress - Head Head exam: Present: atraumatic, normocephalic - Eye Eye exam: Present: normal appearance - ENT ENT exam: Present: mucous membranes moist - Neck Neck exam: Present: normal inspection - Respiratory Respiratory exam: Present: normal lung sounds bilaterally. Absent: respiratory distress - Cardiovascular Cardiovascular Exam: Present: normal rhythm, tachycardia. Absent: systolic murmur, diastolic murmur, rubs, gallop - GI/Abdominal GI/Abdominal exam: Present: soft, normal bowel sounds - Extremities Exam Extremities exam: Present: normal inspection - Back Exam Back exam: Present: normal inspection - Neurological Exam Neurological exam: Present: alert, oriented X3, - Skin Skin exam: Present: warm, dry, intact, normal color. Absent: rash ED Course Vital Signs 10/08/16 10/08/16 21:08 22:59 Temperature 99.1 F Pulse Rate 112 H 99 H Respiratory 20 17 Rate Blood Pressure 157/97 170/83 O2 Sat by Pulse 98 95 Oximetry ED Medical Decision Making - Lab Data Result diagrams: 10/08/16 21:33 10/08/16 21:33 Critical care attestation.: If time is entered above; I have spent that time in minutes in the direct care of this critically ill patient, excluding procedure time. ED Disposition Clinical Impression: Immobility, Pain Fall Qualifiers: Encounter type: initial encounter Qualified Code(s): W19.XXXA - Unspecified fall, initial encounter Disposition: DC- TO HOME OR SELFCARE Is pt being admited?: No Does the pt Need Aspirin: No Condition: Stable Instructions: Fall Prevention for Older Adults (ED) Prescriptions: methOCARBAMOL [Robaxin TAB] 500 mg PO Q6H PRN #20 tablet PRN Reason: Pain Referrals: PRIMARY CARE, [Primary Care Provider] - 3-5 Days
--- NOTE | 2016-10-09 01:22 | XRay Report ---
FINAL REPORT EXAM: XR CHEST 1V AP HISTORY: cp post fall TECHNIQUE: AP portable view of the chest. PRIORS: None. FINDINGS: The cardiomediastinal silhouette appears normal. The lungs are clear. The bones and soft tissues are unremarkable. IMPRESSION: No evidence of acute cardiopulmonary disease.
--- NOTE | 2016-10-09 01:42 | XRay Report ---
FINAL REPORT PROCEDURE: XR SPINE LUMBOSACRAL 2-3V TECHNIQUE: Lumbar spine radiographs, frontal and lateral views. CPT 61838 HISTORY: fall, back injury COMPARISON: No prior studies are available for comparison. FINDINGS: Alignment: Normal . Vertebral body heights/Disk spaces: There is some loss of the anterior vertebral body height at the L1 vertebral level. This involves approximately 25 percent of the vertebral body height and appears well corticated on today's study. Old compression deformity in this region is suspected. Moderate spur formation off the vertebral bodies is identified at the lower thoracic vertebral levels extending into the L1 and L2 vertebral segments. Mild loss of disc space height at the L5-S1 level is noted.. Fracture(s): There is no acute fracture or dislocation.. Facets: Normal . Bone mineralization: Normal . IMPRESSION: There is no evidence of an acute fracture or dislocation. Mild arthritis and degenerative disc changes as described. There is a slight chronic compression deformity of the L1 vertebral body.
--- NOTE | 2016-10-09 01:46 | Cat Scan Report ---
FINAL REPORT PROCEDURE: CT HEAD/BRAIN WO CON TECHNIQUE: Computerized tomography of the head was performed without contrast material. HISTORY: fall, loc, head injury COMPARISON: 01/29/2013 FINDINGS: Skull and scalp: Normal. Paranasal sinuses: Normal. Ventricles and subarachnoid spaces: Normal. Cerebrum: No evidence of hemorrhage, acute infarction or mass. Slight atrophy and periventricular deep white matter changes noted.. Cerebellum and brainstem: No evidence of hemorrhage, acute infarction or mass. Vasculature: Normal. Comments: None. IMPRESSION: There is no evidence of an acute intracranial process.
--- NOTE | 2016-10-09 01:49 | Cat Scan Report ---
FINAL REPORT PROCEDURE: CT CERVICAL SPINE WO CON TECHNIQUE: Computerized tomography of the cervical spine was performed from the skull base to T1 without contrast material. HISTORY: neck pain post fall COMPARISON: No prior studies are available for comparison. FINDINGS: The alignment of the vertebral segments is normal. The heights of the vertebral bodies are maintained. Mild loss of disc space height is identified at the C5-6 and C6-7 levels. Mild spur formation off the vertebral bodies and the facets is seen at all levels. There is mild posterior bulging disc identified at the C3-4, C4-5 and C5-6 levels. This is associated with mild posterior spur formation off the vertebral bodies. Spinal canal is adequate. The visualized portion of the airway is patent. IMPRESSION: No evidence of an acute fracture or dislocation of the cervical spine. Moderate cervical spondylosis and degenerative disc changes as described..
[2016-10-09 02:37] VITALS: BP 148/83
== END 2016-10-09 02:36 | disposition home or self-care (01) ==
LOC: ED 20:41
DX: R51 Headache (principal); M54.2 Cervicalgia; I10 Essential (primary) hypertension; I50.9 Heart failure, unspecified; E11.9 Type 2 diabetes mellitus without complications; J45.909 Unspecified asthma, uncomplicated; I48.91 Unspecified atrial fibrillation; F17.200 Nicotine dependence, unspecified, uncomplicated; Z86.711 Personal history of pulmonary embolism; Z86.718 Personal history of other venous thrombosis and embolism; W19.XXXA Unspecified fall, initial encounter; Y93.89 Activity, other specified; Y99.9 Unspecified external cause status; Y92.89 Other specified places as the place of occurrence of the external cause
CPT/HCPCS: 36415; 70450; 71010; 72100; 72125; 80053; 84484; 85025; 85610; 85730; 93005; 93010

== ENCOUNTER 2016-10-09 12:05 | Emergency (ER) | payer MEDICARE ==
[2016-10-09] MEDS ORDERED: ZOFRAN IM ONE (19:02)
[2016-10-09] MEDS ORDERED: MORPHINE IM ONE (19:02)
--- NOTE | 2016-10-09 19:04 | Emergency Department Report ---
HPI - General Chief Complaint: Fall Time Seen by Provider: 10/09/16 18:50 - HPI HPI: Room 9 The patient is a 56-year-old female presenting with a chief complaint of body aches after fall. The patient states approximately 3 days ago when she was transferring from her wheelchair to a bed she fell striking her left upper quadrant on the wheelchair. The patient states after the fall she crawled to the state there for approximately 2 days secondary to pain in her back shoulder or neck and head in addition to the left upper quadrant. The patient then came to the emergency department yesterday for evaluation where she received her CT of the head and cervical spine, x-rays of the chest and lumbar spine and none of which showed any acute injuries. The patient was sent home with a prescription for muscle relaxant which she states she never filled. The patient states she continues to have pain score 10/10 causing her to return to the emergency department Location: [see above] Duration: 3 Days Quality: Pain Severity: 10/10 Modifying factors: Movement increases pain Context: [see above] Mode of transportation: [not driving] ED Past Medical Hx - Past Medical History Hx Hypertension: Yes Hx Congestive Heart Failure: Yes Hx Diabetes: Yes Hx Deep Vein Thrombosis: Yes Hx Pulmonary Embolism: Yes Hx Renal Disease: Yes (recent ARF with rhabdomyolysis but currently resolved ) Hx Asthma: Yes (pt states no but has been using inhaler ) Hx COPD: Yes Additional medical history: AAA, afib - Surgical History Additional Surgical History: AAA, blood clot in right leg, left rotator cuff surgery, torn meniscus in left knee - Family History Family history: no significant - Social History Smoking Status: Current Every Day Smoker (1/3 pack per day) Substance Use Type: None (denies illicit drug use), Alcohol (3 6-packs of beer per week) - Medications Home Medications: Home Medications Medication Instructions Recorded Confirmed Last Taken Type HYDROcodone/APAP 5-325 [[place] 1 - 2 each PO Q6HR PRN #14 tablet 10/09/16 Unknown Rx 5/325] Ibuprofen [Motrin 800 MG tab] 800 mg PO Q8HR PRN #20 tablet 10/09/16 Unknown Rx methOCARBAMOL [Robaxin TAB] 500 mg PO Q6H PRN #20 tablet 10/09/16 10/09/16 Unknown Rx ED Review of Systems ROS: Stated complaint: FALL Other details as noted in HPI Comment: All other systems reviewed and negative Constitutional: denies: chills, fever Eyes: denies: eye pain, eye discharge, vision change ENT: denies: ear pain, throat pain Respiratory: denies: cough, shortness of breath, wheezing Cardiovascular: denies: chest pain, palpitations Endocrine: no symptoms reported Gastrointestinal: abdominal pain Genitourinary: denies: urgency, dysuria, discharge Musculoskeletal: arthralgia, myalgia Skin: denies: rash, lesions Neurological: headache Psychiatric: denies: anxiety, depression Hematological/Lymphatic: denies: easy bleeding, easy bruising Physical Exam - Physical Exam Vital Signs: Vital Signs 10/09/16 10/09/16 10/09/16 12:28 18:00 18:36 Temperature 98.8 F Pulse Rate 104 H 96 H Respiratory 17 16 16 Rate Blood Pressure 152/91 Blood Pressure 135/79 [Right] O2 Sat by Pulse 95 96 96 Oximetry Physical Exam: GENERAL: The patient is well-developed well-nourished female lying on stretcher not appear to be in acute distress. [] HEENT: Normocephalic. Atraumatic. Extraocular motions are intact. Patient has moist mucous membranes. NECK: Supple. Trachea midline CHEST/LUNGS: Clear to auscultation. There is no respiratory distress noted. HEART/CARDIOVASCULAR: Regular. There is no tachycardia. There is no gallop rub or murmur. ABDOMEN: Abdomen is soft, with mild discomfort to palpation in the left upper quadrant only. Patient has normal bowel sounds. There is no abdominal distention. SKIN: There is no rash. There is no edema. There is no diaphoresis. NEURO: The patient is awake, alert, and oriented. The patient is cooperative. The patient has normal speech MUSCULOSKELETAL: There is no evidence of acute injury. ED Course Vital Signs 10/09/16 10/09/16 10/09/16 12:28 18:00 18:36 Temperature 98.8 F Pulse Rate 104 H 96 H Respiratory 17 16 16 Rate Blood Pressure 152/91 Blood Pressure 135/79 [Right] O2 Sat by Pulse 95 96 96 Oximetry ED Medical Decision Making - Lab Data Laboratory Tests 10/09/16 19:30 Total Creatine Kinase 149 H - Radiology Data Radiology results: report reviewed (CT abdomen and pelvis), image reviewed (CT abdomen and pelvis) CT abdomen and pelvis (read by radiologist)-. No acute traumatic intra- abdominal findings. - Differential Diagnosis splenic injury, myalgias, rhabdomyolysis Critical care attestation.: If time is entered above; I have spent that time in minutes in the direct care of this critically ill patient, excluding procedure time. ED Disposition Clinical Impression: Abdominal contusion, Myalgia Disposition: TO HOME OR SELFCARE Is pt being admited?: No Does the pt Need Aspirin: No Condition: Stable Additional Instructions: Return to the emergency department immediately should you develop worsening symptoms, fever, inability to tolerate food or liquid or any other concerns. Prescriptions: HYDROcodone/APAP 5-325 [[place] 5/325] 1 - 2 each PO Q6HR PRN #14 tablet PRN Reason: Pain Ibuprofen [Motrin 800 MG tab] 800 mg PO Q8HR PRN #20 tablet PRN Reason: Pain Referrals: PRIMARY CAREMD [Primary Care Provider] - 3-5 Days RAVIN DUARTE MD [Staff Physician] - 3-5 Days (Dr. Duarte is an orthopedic surgeon. Please follow him for further evaluation) Time of Disposition: 21:48
--- NOTE | 2016-10-09 21:23 | Cat Scan Report ---
FINAL REPORT EXAM: CT ABDOMEN PELVIS WO CON HISTORY: LUQ abd pain after falling on wheelchair TECHNIQUE: CT images obtained through the Abdomen and Pelvis without contrast. Transaxial,coronal and sagittal reformats are provided. PRIORS: None. FINDINGS: Imaged intrathoracic contents are unremarkable. Kidneys are normal in size, axis and position. No hydronephrosis or nephrolithiasis. The ureters are normal in course and caliber. No stones are seen within the urinary bladder. Hepatic steatosis with focal sparing about the gallbladder fossa. The liver, gallbladder, pancreas, spleen, and adrenal glands otherwise demonstrate an unremarkable noncontrast appearance. Hollow enteric organs are normal in course and caliber. No acute appendicitis. No intra-abdominal free air/fluid or lymphadenopathy. Infrarenal IVC filter. Normal caliber aorta. Aortoiliac graft. Superficial soft tissues are remarkable for a midline surgical scar. Superior endplate compression deformity at L1 is of unknown chronicity. IMPRESSION: Superior endplate compression at L1 is of unknown chronicity. Differential diagnosis includes prominent Schmorl's node versus fracture. Consider MRI for further evaluation as warranted. No acute/traumatic intra-abdominal findings.
[2016-10-09 22:12] VITALS: BP 126/81
== END 2016-10-09 22:12 | disposition home or self-care (01) ==
LOC: ED 12:05
DX: S30.1XXA Contusion of abdominal wall, initial encounter (principal); I10 Essential (primary) hypertension; I50.9 Heart failure, unspecified; E11.9 Type 2 diabetes mellitus without complications; J45.909 Unspecified asthma, uncomplicated; I48.91 Unspecified atrial fibrillation; F17.210 Nicotine dependence, cigarettes, uncomplicated; Z86.718 Personal history of other venous thrombosis and embolism; Z86.711 Personal history of pulmonary embolism; W08.XXXA Fall from other furniture, initial encounter; Y93.89 Activity, other specified; Y99.9 Unspecified external cause status; Y92.89 Other specified places as the place of occurrence of the external cause
CPT/HCPCS: 36415; 74176; 82550; 96372; 99284; J2270; J2405

== ENCOUNTER 2016-11-01 11:19 | Emergency (ER) | payer MEDICARE ==
[2016-11-01] MEDS ORDERED: ZOFRAN IV ONE (12:19)
[2016-11-01] MEDS ORDERED: SUBLIMAZE IV ONE (12:19)
--- NOTE | 2016-11-01 12:34 | Emergency Department Report ---
HPI - General Chief Complaint: Back Pain/Injury Time Seen by Provider: 11/01/16 12:05 - HPI HPI: Room 6 The patient is a 56-year-old female presented with a chief complaint of right flank pain. The patient states last night she was transferred from the sofa to her wheelchair when she missed and fell striking her back/flank calyx. Patient complains of pain in the right flank that worsens with movement. Patient denies loss of consciousness Location: Right flank Duration: Constant since last night Quality: Pain Severity: Severe Modifying factors: Movement increases pain Context: [see above] Mode of transportation: [not driving] ED Past Medical Hx - Past Medical History Previous Medical History?: Yes Hx Hypertension: Yes Hx Congestive Heart Failure: Yes Hx Diabetes: Yes Hx Deep Vein Thrombosis: Yes Hx Pulmonary Embolism: Yes Hx Renal Disease: Yes (recent ARF with rhabdomyolysis but currently resolved ) Hx Asthma: Yes (pt states no but has been using inhaler ) Hx COPD: Yes Additional medical history: AAA, afib - Surgical History Past Surgical History?: Yes Additional Surgical History: AAA, blood clot in right leg, left rotator cuff surgery, torn meniscus in left knee - Family History Family history: no significant - Social History Smoking Status: Current Every Day Smoker (1/2 pack per day) Substance Use Type: Alcohol (3-4 drinks per week) - Medications Home Medications: Home Medications Medication Instructions Recorded Confirmed Last Taken Type HYDROcodone/APAP 5-325 [[place] 1 - 2 each PO Q6HR PRN #14 tablet 10/09/16 Unknown Rx 5/325] Ibuprofen [Motrin 800 MG tab] 800 mg PO Q8HR PRN #20 tablet 10/09/16 Unknown Rx methOCARBAMOL [Robaxin TAB] 500 mg PO Q6H PRN #20 tablet 10/09/16 10/09/16 Unknown Rx HYDROcodone/APAP 5-325 [[place] 1 - 2 each PO Q6HR PRN #14 tablet 11/01/16 Unknown Rx 5/325] Ibuprofen [Motrin 800 MG tab] 800 mg PO Q8HR PRN #20 tablet 11/01/16 Unknown Rx ED Review of Systems ROS: Stated complaint: FALL Other details as noted in HPI Comment: All other systems reviewed and negative Constitutional: denies: chills, fever Eyes: denies: eye pain, eye discharge, vision change ENT: denies: ear pain, throat pain Respiratory: denies: cough, shortness of breath, wheezing Cardiovascular: denies: chest pain, palpitations Endocrine: no symptoms reported Genitourinary: denies: urgency, dysuria, discharge Musculoskeletal: back pain Skin: denies: rash, lesions Neurological: denies: headache, weakness, paresthesias Psychiatric: denies: anxiety, depression Hematological/Lymphatic: denies: easy bleeding, easy bruising Physical Exam - Physical Exam Vital Signs: Vital Signs 11/01/16 11/01/16 11:31 11:39 Temperature 97.9 F Pulse Rate 80 Respiratory 20 18 Rate Blood Pressure 114/53 O2 Sat by Pulse 98 Oximetry Physical Exam: GENERAL: The patient is well-developed well-nourished female lying on stretcher appearing to be in moderate discomfort. [] HEENT: Normocephalic. Atraumatic. Extraocular motions are intact. Patient has moist mucous membranes. NECK: Supple. No axial tenderness. Trachea midline CHEST/LUNGS: Clear to auscultation. There is no respiratory distress noted. HEART/CARDIOVASCULAR: Regular. There is no tachycardia. There is no gallop rub or murmur. ABDOMEN: Abdomen is soft, with tenderness to palpation in the right upper quadrant. Patient has normal bowel sounds. There is no abdominal distention. SKIN: There is no rash. There is no edema. There is no diaphoresis. NEURO: The patient is awake, alert, and oriented. The patient is cooperative. The patient has normal speech and gait. MUSCULOSKELETAL: There is no axial tenderness of the cervical/thoracic/lumbar spine. There is no evidence of acute injury. ED Course Vital Signs 11/01/16 11/01/16 11:31 11:39 Temperature 97.9 F Pulse Rate 80 Respiratory 20 18 Rate Blood Pressure 114/53 O2 Sat by Pulse 98 Oximetry ED Medical Decision Making - Lab Data Result diagrams: 11/01/16 12:21 11/01/16 12:21 Laboratory Tests 11/01/16 11/01/16 11/01/16 12:21 12:21 12:21 WBC 2.4 L RBC 4.04 Hgb 13.6 Hct 38.8 MCV 96 MCH 34 H MCHC 35 H RDW 14.1 Plt Count 166 Baso % (Auto) High Tension Tester Add Manual Diff Complete Total Counted 100 Seg Neuts % (Manual) 44.0 Band Neutrophils % 0 Lymphocytes % (Manual) 40.0 H Reactive Lymphs % (Man) 0 Monocytes % (Manual) 10.0 H Eosinophils % (Manual) 5.0 H Basophils % (Manual) 1.0 Metamyelocytes % 0 Myelocytes % 0 Promyelocytes % 0 Blast Cells % 0 Nucleated RBC % Not Reportable Seg Neutrophils # Man 1.1 L Band Neutrophils # 0.0 Lymphocytes # (Manual) 1.0 L Abs React Lymphs (Man) 0.0 Monocytes # (Manual) 0.2 Eosinophils # (Manual) 0.1 Basophils # (Manual) 0.0 Metamyelocytes # 0.0 Myelocytes # 0.0 Promyelocytes # 0.0 Blast Cells # 0.0 WBC Morphology Not Reportable Hypersegmented Neuts Not Reportable Hyposegmented Neuts Not Reportable Hypogranular Neuts Not Reportable Smudge Cells Not Reportable Toxic Granulation Not Reportable Toxic Vacuolation Not Reportable Dohle Bodies Not Reportable Pelger-Huet Anomaly Not Reportable Shai Rods Not Reportable Platelet Estimate Consistent w auto Clumped Platelets Not Reportable Plt Clumps, EDTA Not Reportable Large Platelets Not Reportable Giant Platelets Not Reportable Platelet Satelliting Not Reportable Plt Morphology Comment Not Reportable RBC Morphology Not Reportable Dimorphic RBCs Not Reportable Polychromasia Not Reportable Hypochromasia Not Reportable Poikilocytosis Not Reportable Anisocytosis 1+ Microcytosis Not Reportable Macrocytosis Not Reportable Spherocytes Not Reportable Pappenheimer Bodies Not Reportable Sickle Cells Not Reportable Target Cells Not Reportable Tear Drop Cells Not Reportable Ovalocytes Not Reportable Helmet Cells Not Reportable Giron-Bear Bodies Not Reportable [place] Rings Not Reportable [place] Cells Not Reportable Bite Cells Not Reportable Crenated Cell Not Reportable Elliptocytes Not Reportable Acanthocytes (Spur) Not Reportable Rouleaux Not Reportable Hemoglobin C Crystals Not Reportable Schistocytes Not Reportable Malaria parasites Not Reportable Jorden Bodies Not Reportable Hem Pathologist Commnt No PT 15.2 H INR 1.21 H APTT 29.2 Sodium 137 Potassium 3.1 L Chloride 95.3 L Carbon Dioxide 25 Anion Gap 20 BUN 3 L Creatinine 0.7 Estimated GFR > 60 BUN/Creatinine Ratio 4.28 Glucose 90 Calcium 8.1 L Total Bilirubin 0.40 AST 26 ALT 17 Alkaline Phosphatase 61 Total Protein 7.1 Albumin 3.6 L Albumin/Globulin Ratio 1.0 Plasma/Serum Alcohol Blood Type Antibody Screen 11/01/16 11/01/16 12:24 12:59 WBC RBC Hgb Hct MCV MCH MCHC RDW Plt Count Baso % (Auto) Add Manual Diff Total Counted Seg Neuts % (Manual) Band Neutrophils % Lymphocytes % (Manual) Reactive Lymphs % (Man) Monocytes % (Manual) Eosinophils % (Manual) Basophils % (Manual) Metamyelocytes % Myelocytes % Promyelocytes % Blast Cells % Nucleated RBC % Seg Neutrophils # Man Band Neutrophils # Lymphocytes # (Manual) Abs React Lymphs (Man) Monocytes # (Manual) Eosinophils # (Manual) Basophils # (Manual) Metamyelocytes # Myelocytes # Promyelocytes # Blast Cells # WBC Morphology Hypersegmented Neuts Hyposegmented Neuts Hypogranular Neuts Smudge Cells Toxic Granulation Toxic Vacuolation Dohle Bodies Pelger-Huet Anomaly Shai Rods Platelet Estimate Clumped Platelets Plt Clumps, EDTA Large Platelets Giant Platelets Platelet Satelliting Plt Morphology Comment RBC Morphology Dimorphic RBCs Polychromasia Hypochromasia Poikilocytosis Anisocytosis Microcytosis Macrocytosis Spherocytes Pappenheimer Bodies Sickle Cells Target Cells Tear Drop Cells Ovalocytes Helmet Cells Giron-Bear Bodies [place] Rings [place] Cells Bite Cells Crenated Cell Elliptocytes Acanthocytes (Spur) Rouleaux Hemoglobin C Crystals Schistocytes Malaria parasites Jorden Bodies Hem Pathologist Commnt PT INR APTT Sodium Potassium Chloride Carbon Dioxide Anion Gap BUN Creatinine Estimated GFR BUN/Creatinine Ratio Glucose Calcium Total Bilirubin AST ALT Alkaline Phosphatase Total Protein Albumin Albumin/Globulin Ratio Plasma/Serum Alcohol 0.31 H Blood Type A POSITIVE Antibody Screen Negative - Radiology Data Radiology results: report reviewed (CT abdomen and pelvis), image reviewed (CT abdomen and pelvis) interpreted by me: CT abdomen and pelvis (read by myself)-minimally displaced posterior rib fractures on T11, T12. No pneumothorax CT abdomen and pelvis (read by radiologist)-hypodensity left kidney probably a cyst - Differential Diagnosis liver laceration, abdominal contusion, rib fracture, Critical care attestation.: If time is entered above; I have spent that time in minutes in the direct care of this critically ill patient, excluding procedure time. ED Disposition Clinical Impression: Ribs, multiple fractures, Right flank pain, Alcohol intoxication Disposition: DC-01 TO HOME OR SELFCARE Is pt being admited?: No Condition: Stable Instructions: Rib Fracture (ED) Additional Instructions: Return to the emergency department immediately should you develop worsening symptoms, fever, inability to tolerate food or liquid or any other concerns. Prescriptions: HYDROcodone/APAP 5-325 [[place] 5/325] 1 - 2 each PO Q6HR PRN #14 tablet PRN Reason: Pain Ibuprofen [Motrin 800 MG tab] 800 mg PO Q8HR PRN #20 tablet PRN Reason: Pain Referrals: PRIMARY CAREMD [Primary Care Provider] - 3-5 Days RAVIN DUARTE MD [Staff Physician] - 3-5 Days (Dr. Duarte is an orthopedic surgeon. Please follow up with him for further evaluation) Time of Disposition: 13:46 (d/c to family or when ETOH <0.08)
[2016-11-01 12:40] LABS: Hematocrit 38.8 % (30.3-42.9); Hemoglobin 13.6 gm/dl (10.1-14.3); Mean Corpuscular HGB Conc 35 % (30-34); Mean Corpuscular Hemoglobin 34 pg (28-32); Mean Corpuscular Volume 96 fl (79-97); Platelet Count 166 K/mm3 (140-440); Red Blood Count 4.04 M/mm3 (3.65-5.03); Red Cell Distribution Width 14.1 % (13.2-15.2); White Blood Count 2.4 K/mm3 (4.5-11.0)
[2016-11-01 12:51] LABS: INR 1.21 (0.87-1.13)
[2016-11-01 12:52] LABS: Partial Thromboplastin Time 29.2 Sec. (24.2-36.6)
[2016-11-01 12:57] LABS: Alanine Aminotransferase 17 units/L (7-56); Albumin 3.6 g/dL (3.9-5); Alkaline Phosphatase 61 units/L (35-129); Anion Gap 20 mmol/L; BUN/Creatinine Ratio 4.28; Blood Urea Nitrogen 3 mg/dL (7-17); Calcium 8.1 mg/dL (8.4-10.2); Carbon Dioxide 25 mmol/L (22-30); Chloride 95.3 mmol/L (98-107); Glucose 90 mg/dL (65-100); Potassium 3.1 mmol/L (3.6-5.0); Sodium 137 mmol/L (137-145); Total Protein 7.1 g/dL (6.3-8.2)
[2016-11-01] MEDS ORDERED: K-DUR PO ONE (12:58)
--- NOTE | 2016-11-01 13:30 | Cat Scan Report ---
CT scan of abdomen and pelvis without IV contrast: History: Right flank pain after fall. Findings: Normal lung bases. No pleural pericardial effusion. Liver is upper limit of normal in size. Normal spleen. Normal pancreas. Normal gallbladder. Normal adrenals. Circumscribed hypodensity upper pole of left kidney measuring 1 cm in diameter. No hydronephrosis. Urine distended bladder. Normal wall thickness. No free intraperitoneal fluid or. No evidence of adenopathy. Atherosclerotic aorta. Inferior vena cava filter. No evidence of appendicitis or diverticulitis. Gaseous colon without stool in colon. No mass along the abdominal wall. Impression: Hypodensity left kidney probably a cyst.
[2016-11-01 13:39] LABS: Blastocytes % (Manual) 0 %
[2016-11-01 13:41] LABS: Anisocytosis 1+
[2016-11-01 13:42] LABS: Diff Status Complete; Platelet Estimate Consistent w Auto
[2016-11-01 15:00] VITALS: BP 112/64
== END 2016-11-01 14:59 | disposition home or self-care (01) ==
LOC: ED 11:19
DX: S22.41XA Multiple fractures of ribs, right side, initial encounter for closed fracture (principal); R10.9 Unspecified abdominal pain; I10 Essential (primary) hypertension; I50.9 Heart failure, unspecified; E11.9 Type 2 diabetes mellitus without complications; J44.9 Chronic obstructive pulmonary disease, unspecified; J45.909 Unspecified asthma, uncomplicated; F17.200 Nicotine dependence, unspecified, uncomplicated; F10.129 Alcohol abuse with intoxication, unspecified; W17.89XA Other fall from one level to another, initial encounter; Y93.89 Activity, other specified; Y92.89 Other specified places as the place of occurrence of the external cause; Y99.8 Other external cause status; Z88.8 Allergy status to other drugs, medicaments and biological substances
CPT/HCPCS: 36415; 74176; 80053; 85007; 85025; 85610; 85730; 86850; 86900; 86901; 96374; 96375; 99284; G0480; J2405; J3010; 80320

== ENCOUNTER 2016-12-29 02:05 | Emergency (ER) | payer MEDICARE ==
[2016-12-29 03:30] LABS: Anion Gap 17 mmol/L; BUN/Creatinine Ratio 8; Blood Urea Nitrogen 6 mg/dL (7-17); Calcium 8.5 mg/dL (8.4-10.2); Carbon Dioxide 26 mmol/L (22-30); Chloride 103.4 mmol/L (98-107); Glucose 82 mg/dL (65-100); Potassium 4.6 mmol/L (3.6-5.0); Sodium 142 mmol/L (137-145)
[2016-12-29 03:34] LABS: Hematocrit 42.1 % (30.3-42.9); Hemoglobin 14.3 gm/dl (10.1-14.3); Mean Corpuscular HGB Conc 34 % (30-34); Mean Corpuscular Hemoglobin 34 pg (28-32); Mean Corpuscular Volume 100 fl (79-97); Platelet Count 192 K/mm3 (140-440); Red Blood Count 4.22 M/mm3 (3.65-5.03); Red Cell Distribution Width 15.6 % (13.2-15.2); White Blood Count 4.7 K/mm3 (4.5-11.0)
[2016-12-29] MEDS ORDERED: MOTRIN PO ONE (04:42)
[2016-12-29 04:44] LABS: Blastocytes % (Manual) 0 %
[2016-12-29 04:45] LABS: Diff Status Complete; INR 1.92 (0.87-1.13); Platelet Estimate Consistent w Auto
[2016-12-29 04:46] LABS: Partial Thromboplastin Time 36.6 Sec. (24.2-36.6)
--- NOTE | 2016-12-29 04:57 | XRay Report ---
FINAL REPORT PROCEDURE: XR CHEST ROUTINE 2V TECHNIQUE: A portable AP chest radiograph was obtained at 12/29/2016 04:36 (EST) . CPT 28371 HISTORY: pain to right chest with hx of fx'd ribs COMPARISON: No prior studies are available for comparison. FINDINGS: Heart: Heart is borderline enlarged.. Mediastinum/Vessels: Normal. Lungs/Pleural space: Lungs are clear and expanded. There are no infiltrates, effusions or pneumothoraces.. Bony thorax: No acute osseous abnormality. Life support devices: None. IMPRESSION: There is no acute cardiopulmonary abnormality..
[2016-12-29] MEDS ORDERED: BENADRYL IV ONE (08:03)
[2016-12-29] MEDS ORDERED: ZOFRAN IV ONE (08:03)
[2016-12-29] MEDS ORDERED: DILAUDID IV ONE (08:03)
--- NOTE | 2016-12-29 08:04 | Emergency Department Report ---
ED General Adult HPI - General Chief complaint: Chest Pain Stated complaint: RIB PAIN Time Seen by Provider: 12/29/16 08:02 Source: patient, EMS Mode of arrival: Stretcher Limitations: Physical Limitation - History of Present Illness Initial comments: Patient complains of right posterior chest pain which she has had for weeks. She is noted to have a right left rib fracture. She is also anticoagulated. She is on Coumadin and Lovenox. She admits to alcohol abuse. She states that she used to be taking Percocet daily but doesn't do that anymore. She is somewhat inappropriately asking for pain medicine at the same time as going home and requesting a "turkey sandwich". She does admit to problems with anxiety. She does not report a bipolar disorder or any other more significant psychiatric condition. -: week(s) Location: chest Radiation: non-radiation Quality: aching Consistency: constant Improves with: none Worsens with: none Associated Symptoms: denies other symptoms (no dyspnea) - Related Data Home Medications Medication Instructions Recorded Confirmed Last Taken Furosemide [Lasix TAB] 20 mg PO QDAY 12/16/16 12/29/16 Unknown Metoprolol Xl [Metoprolol 50 mg PO QDAY 12/16/16 12/29/16 Unknown SUCCINATE ER TAB] Potassium Chloride [K-Dur] 10 meq PO QDAY 12/16/16 12/29/16 Unknown Previous Rx's Medication Instructions Recorded Last Taken Type Enoxaparin [Lovenox] 40 mg SUB-Q QDAY syringe 12/21/16 Unknown Rx Warfarin [Coumadin] 10 mg PO DAILY@1700 tablet 12/21/16 Unknown Rx traMADol [Ultram] 50 mg PO Q8HR PRN #7 tablet 12/29/16 Unknown Rx Allergies Allergy/AdvReac Type Severity Reaction Status Date / Time Iodinated Contrast- Oral and Allergy Hives Verified 10/09/16 19:44 IV Dye [Iodinated Contrast Media - IV Dye] ED Review of Systems ROS: Stated complaint: RIB PAIN Other details as noted in HPI Constitutional: denies: chills, fever Eyes: denies: eye pain, eye discharge, vision change ENT: denies: ear pain, throat pain Respiratory: denies: cough, shortness of breath, wheezing Cardiovascular: chest pain (right posterior). denies: palpitations Endocrine: no symptoms reported Gastrointestinal: denies: abdominal pain, nausea, diarrhea Genitourinary: denies: urgency, dysuria, discharge Musculoskeletal: denies: back pain, joint swelling, arthralgia Skin: denies: rash, lesions Neurological: denies: headache, weakness, paresthesias Psychiatric: denies: anxiety, depression Hematological/Lymphatic: denies: easy bleeding, easy bruising ED Past Medical Hx - Past Medical History Hx Hypertension: Yes Hx Heart Attack/AMI: No Hx Congestive Heart Failure: Yes Hx Diabetes: Yes Hx Deep Vein Thrombosis: Yes Hx Pulmonary Embolism: Yes Hx Liver Disease: No Hx Renal Disease: Yes (recent ARF with rhabdomyolysis but currently resolved ) Hx Sickle Cell Disease: No Hx Seizures: No Hx Asthma: Yes (pt states no but has been using inhaler ) Hx COPD: Yes Hx HIV: No Additional medical history: AAA, afib - Surgical History Hx Pacemaker: No Hx Internal Defibrillator: No Additional Surgical History: AAA, blood clot in right leg, left rotator cuff surgery, torn meniscus in left knee - Social History Smoking Status: Current Every Day Smoker Substance Use Type: Alcohol - Medications Home Medications: Home Medications Medication Instructions Recorded Confirmed Last Taken Type Furosemide [Lasix TAB] 20 mg PO QDAY 12/16/16 12/29/16 Unknown History Metoprolol Xl [Metoprolol 50 mg PO QDAY 12/16/16 12/29/16 Unknown History SUCCINATE ER TAB] Potassium Chloride [K-Dur] 10 meq PO QDAY 12/16/16 12/29/16 Unknown History Enoxaparin [Lovenox] 40 mg SUB-Q QDAY syringe 12/21/16 12/29/16 Unknown Rx Warfarin [Coumadin] 10 mg PO DAILY@1700 tablet 12/21/16 12/29/16 Unknown Rx traMADol [Ultram] 50 mg PO Q8HR PRN #7 tablet 12/29/16 Unknown Rx ED Physical Exam - General Limitations: No Limitations General appearance: alert, in no apparent distress, other (somewhat inappropriate behavior) - Head Head exam: Present: atraumatic, normocephalic - Eye Eye exam: Present: normal appearance, PERRL, EOMI. Absent: scleral icterus - ENT ENT exam: Present: mucous membranes moist - Neck Neck exam: Present: normal inspection. Absent: tenderness, meningismus - Respiratory Respiratory exam: Present: normal lung sounds bilaterally. Absent: respiratory distress - Cardiovascular Cardiovascular Exam: Present: regular rate, normal rhythm. Absent: systolic murmur, diastolic murmur, rubs, gallop - GI/Abdominal GI/Abdominal exam: Present: soft, normal bowel sounds. Absent: distended, tenderness, guarding, rebound, rigid - Extremities Exam Extremities exam: Present: normal inspection - Back Exam Back exam: Present: normal inspection - Neurological Exam Neurological exam: Present: alert, oriented X3, CN II-XII intact. Absent: motor sensory deficit - Psychiatric Psychiatric exam: Present: normal affect, normal mood - Skin Skin exam: Present: warm, dry, intact, normal color. Absent: rash ED Course Vital Signs 12/29/16 12/29/16 12/29/16 02:27 02:55 03:00 Temperature 98.7 F Pulse Rate 93 H 92 H Respiratory 15 19 18 Rate Blood Pressure 127/71 127/71 O2 Sat by Pulse 100 99 98 Oximetry 12/29/16 12/29/16 12/29/16 04:08 05:00 06:00 Temperature Pulse Rate 92 H 92 H Respiratory 23 21 Rate Blood Pressure 145/73 145/73 128/73 O2 Sat by Pulse 85 98 93 Oximetry 12/29/16 12/29/16 12/29/16 06:30 07:00 07:39 Temperature Pulse Rate 93 H 94 H Respiratory 22 22 Rate Blood Pressure 122/75 140/82 140/82 O2 Sat by Pulse 98 98 Oximetry 12/29/16 12/29/16 12/29/16 08:01 08:31 08:59 Temperature Pulse Rate Respiratory 20 Rate Blood Pressure 140/82 140/82 O2 Sat by Pulse Oximetry 12/29/16 09:01 Temperature 97.9 F Pulse Rate Respiratory Rate Blood Pressure O2 Sat by Pulse Oximetry - Reevaluation(s) Reevaluation #1: Patient was given analgesia. She was fed. She was observed. She is appropriate for outpatient disposition. She will be discharged to responsible adult. 12/29/16 09:29 Reevaluation #2: I am uncertain as to why this patient is being maintained on Coumadin. I will page Dr. Cristina to consult with her on that prior to discharging the patient. 12/29/16 09:36 Reevaluation #3: Patient's states thats in 2013 she was diagnosed with a pulmonary embolism. I have emphasized to her that alcohol abuse while you are on anticoagulation is rather dangerous. She expressed understanding. She is appropriate for discharge at this time. She has no further complaint. 12/29/16 12:01 ED Medical Decision Making - Lab Data Result diagrams: 12/29/16 02:56 12/29/16 02:56 Laboratory Results - last 24 hr 12/29/16 12/29/16 12/29/16 02:56 02:56 02:56 WBC 4.7 RBC 4.22 Hgb 14.3 Hct 42.1 MCV 100 H MCH 34 H MCHC 34 RDW 15.6 H Plt Count 192 Add Manual Diff Complete Total Counted 100 Seg Neutrophils % Diversity Intern Seg Neuts % (Manual) 32.0 L Band Neutrophils % 0 Lymphocytes % (Manual) 59.0 H Reactive Lymphs % (Man) 1.0 Monocytes % (Manual) 5.0 Eosinophils % (Manual) 1.0 Basophils % (Manual) 1.0 Metamyelocytes % 0 Myelocytes % 1.0 Promyelocytes % 0 Blast Cells % 0 Nucleated RBC % 1.0 H Seg Neutrophils # Man 1.5 L Band Neutrophils # 0.0 Lymphocytes # (Manual) 2.8 Abs React Lymphs (Man) 0.0 Monocytes # (Manual) 0.2 Eosinophils # (Manual) 0.0 Basophils # (Manual) 0.0 Metamyelocytes # 0.0 Myelocytes # 0.0 Promyelocytes # 0.0 Blast Cells # 0.0 WBC Morphology Not Reportable Hypersegmented Neuts Not Reportable Hyposegmented Neuts Not Reportable Hypogranular Neuts Not Reportable Smudge Cells Not Reportable Toxic Granulation Not Reportable Toxic Vacuolation Not Reportable Dohle Bodies Not Reportable Pelger-Huet Anomaly Not Reportable Shai Rods Not Reportable Platelet Estimate Consistent w auto Clumped Platelets Not Reportable Plt Clumps, EDTA Not Reportable Large Platelets Not Reportable Giant Platelets Not Reportable Platelet Satelliting Not Reportable Plt Morphology Comment Not Reportable RBC Morphology Not Reportable Dimorphic RBCs Not Reportable Polychromasia Not Reportable Hypochromasia Not Reportable Poikilocytosis Not Reportable Anisocytosis Not Reportable Microcytosis Not Reportable Macrocytosis Not Reportable Spherocytes Not Reportable Pappenheimer Bodies Not Reportable Sickle Cells Not Reportable Target Cells Not Reportable Tear Drop Cells Not Reportable Ovalocytes Not Reportable Helmet Cells Not Reportable [place] Bodies Not Reportable [place] Rings Not Reportable Early Cells Not Reportable Bite Cells Not Reportable Crenated Cell Not Reportable Elliptocytes Not Reportable Acanthocytes (Spur) Not Reportable Rouleaux Not Reportable Hemoglobin C Crystals Not Reportable Schistocytes Not Reportable Malaria parasites Not Reportable Jorden Bodies Not Reportable Hem Pathologist Commnt No PT 22.9 H INR 1.92 H APTT 36.6 Sodium 142 Potassium 4.6 Chloride 103.4 Carbon Dioxide 26 Anion Gap 17 BUN 6 L Creatinine 0.8 Estimated GFR > 60 BUN/Creatinine Ratio 8 Glucose 82 Calcium 8.5 Troponin T < 0.010 Plasma/Serum Alcohol 12/29/16 12/29/16 04:00 06:16 WBC RBC Hgb Hct MCV MCH MCHC RDW Plt Count Add Manual Diff Total Counted Seg Neutrophils % Seg Neuts % (Manual) Band Neutrophils % Lymphocytes % (Manual) Reactive Lymphs % (Man) Monocytes % (Manual) Eosinophils % (Manual) Basophils % (Manual) Metamyelocytes % Myelocytes % Promyelocytes % Blast Cells % Nucleated RBC % Seg Neutrophils # Man Band Neutrophils # Lymphocytes # (Manual) Abs React Lymphs (Man) Monocytes # (Manual) Eosinophils # (Manual) Basophils # (Manual) Metamyelocytes # Myelocytes # Promyelocytes # Blast Cells # WBC Morphology Hypersegmented Neuts Hyposegmented Neuts Hypogranular Neuts Smudge Cells Toxic Granulation Toxic Vacuolation Dohle Bodies Pelger-Huet Anomaly Shai Rods Platelet Estimate Clumped Platelets Plt Clumps, EDTA Large Platelets Giant Platelets Platelet Satelliting Plt Morphology Comment RBC Morphology Dimorphic RBCs Polychromasia Hypochromasia Poikilocytosis Anisocytosis Microcytosis Macrocytosis Spherocytes Pappenheimer Bodies Sickle Cells Target Cells Tear Drop Cells Ovalocytes Helmet Cells Giron-Sawgrass Bodies [place] Rings Camila Cells Bite Cells Crenated Cell Elliptocytes Acanthocytes (Spur) Rouleaux Hemoglobin C Crystals Schistocytes Malaria parasites Jorden Bodies Hem Pathologist Commnt PT INR APTT Sodium Potassium Chloride Carbon Dioxide Anion Gap BUN Creatinine Estimated GFR BUN/Creatinine Ratio Glucose Calcium Troponin T < 0.010 Plasma/Serum Alcohol 0.28 H - EKG Data -: EKG Interpreted by Ne EKG shows normal: sinus rhythm, axis, intervals, QRS complexes, ST-T waves - EKG Data Interpretation: no acute changes - Radiology Data Radiology results: report reviewed (chest x-ray shows no acute process) Critical care attestation.: If time is entered above; I have spent that time in minutes in the direct care of this critically ill patient, excluding procedure time. ED Disposition Clinical Impression: Alcohol abuse Fractured rib Qualifiers: Encounter type: subsequent encounter Rib fracture type: single rib Fracture type: closed Laterality: right Fracture healing: with routine healing Qualified Code(s): S22.31XD - Fracture of one rib, right side, subsequent encounter for fracture with routine healing Disposition: DC- TO HOME OR SELFCARE Is pt being admited?: No Does the pt Need Aspirin: No Condition: Stable Instructions: Abuse of Alcohol (ED), Rib Fracture (ED) Additional Instructions: Is extremely dangerous to drink alcohol to excess Y her on Coumadin. Follow-up with your primary care provider. Prescriptions: traMADol [Ultram] 50 mg PO Q8HR PRN #7 tablet PRN Reason: Pain Referrals: PRIMARY CARE, [Primary Care Provider] - 3-5 Days Time of Disposition: 12:04
[2016-12-29 09:02] VITALS: BP 140/82
[2016-12-29 13:01] LABS: Urine Drugs of Abuse Note Disclamer
== END 2016-12-29 13:29 | disposition home or self-care (01) ==
LOC: ED 02:05
DX: S22.31XD Fracture of one rib, right side, subsequent encounter for fracture with routine healing (principal); F10.10 Alcohol abuse, uncomplicated; I10 Essential (primary) hypertension; E11.9 Type 2 diabetes mellitus without complications; J45.909 Unspecified asthma, uncomplicated; F17.200 Nicotine dependence, unspecified, uncomplicated; Y92.89 Other specified places as the place of occurrence of the external cause
CPT/HCPCS: 36415; 71020; 80048; 80307; 84484; 85007; 85025; 85610; 85730; 93005; 93010; 96374; 96375; 99285; G0480; J1170; J1200; J2405; 80320

== ENCOUNTER 2017-01-03 17:38 | Emergency (ER) | payer MEDICARE ==
--- NOTE | 2017-01-03 19:37 | Emergency Department Report ---
ED Chest Pain HPI - General Stated Complaint: RT SIDED CHEST PAIN Time Seen by Provider: 01/03/17 19:24 Source: patient, old records reviewed Mode of arrival: Stretcher Limitations: No Limitations - History of Present Illness Initial Comments: 56 year old female with a past medical history of alcohol abuse, hypertension, CHF, acute renal sufficiency that resolved with treatment, asthma, COPD, diabetes, and previous history of PE/DVT presents to the hospital complaining of ongoing right sided lower rib pain for several months. Patient was recently seen here December 29 for similar complaints and prescribed several tramadol tablets for pain. Patient states it has helped but she ran out and in the past taken Percocet as well. Patient has had a diagnosis of a right lower rib fracture at least since 11/01/2016. Patient received ct imaging after a fall which showed a 11th and 12th posterior rib fracture. Patient was admitted here early December for a toxic metabolic encephalopathy related to alcohol withdrawal. On 12/16/2016 CT chest without contrast showed increased displacement of the 11th rib fracture compared to previous study. Patient also had a low probability V/Q scan on December 16. Patient complains of ongoing 10/ 10 right lower rib pain described as sharp and worse with deep inspiration, palpation, and movement. Patient denies shortness of breath. Patient states she's been noncompliant with her Coumadin for the last 3 days because she noted she was bruising more and was concerned that her blood was too thin. Patient admits to drinking 3 beers prior to arrival in presents a labile affect and has a cecal history of frequent alcohol use and anxiety symptoms when she stops drinking. Patient becomes upset and cries intermittently but is overall cooperative. Patient knows she has a rib fracture and that she was told he can take 11-13 weeks to heal. Also on previous medical record review patient had cardiac stress testing in September 2016 which did not reveal any significant induced ischemia or prior infarction. EF of 63% reported a stress test. PMD: Dr. Zimmerman - Related Data Home Medications Medication Instructions Recorded Confirmed Last Taken Furosemide [Lasix TAB] 20 mg PO QDAY 12/16/16 12/29/16 Unknown Metoprolol Xl [Metoprolol 50 mg PO QDAY 12/16/16 12/29/16 Unknown SUCCINATE ER TAB] Potassium Chloride [K-Dur] 10 meq PO QDAY 12/16/16 12/29/16 Unknown Previous Rx's Medication Instructions Recorded Last Taken Type Enoxaparin [Lovenox] 40 mg SUB-Q QDAY syringe 12/21/16 Unknown Rx Warfarin [Coumadin] 10 mg PO DAILY@1700 tablet 12/21/16 Unknown Rx traMADol [Ultram 50 MG tab] 50 mg PO Q8HR PRN #12 tablet 01/04/17 Unknown Rx Allergies Allergy/AdvReac Type Severity Reaction Status Date / Time Iodinated Contrast- Oral and Allergy Hives Verified 10/09/16 19:44 IV Dye [Iodinated Contrast Media - IV Dye] Heart Score - HEART Score History: Slightly suspicious EKG: Normal Age: < 45 Risk factors: > 3 risk factors or hx of atherosclerotic disease Troponin: < normal limit HEART Score: 2 ED Review of Systems ROS: Stated complaint: RT SIDED CHEST PAIN Other details as noted in HPI Comment: All other systems reviewed and negative Other: Constitutional: No fevers chills Eyes: No eye pain visual changes ENT: No ear pain or throat pain Neck: Denies pain Respiratory: Denies cough wheezing shortness of breath Cardiovascular: Denies palpitations, syncope GI: Denies abdominal pain, nausea, vomiting, diarrhea : Denies dysuria Musculoskeletal: Denies back pain, joint swelling Skin: Denies rash, lesions, erythema Neurologic: Denies headache, numbness, weakness Psychiatric: Denies suicidal ideation, hallucinations ED Past Medical Hx - Past Medical History Hx Hypertension: Yes Hx Heart Attack/AMI: No Hx Congestive Heart Failure: Yes Hx Diabetes: Yes Hx Deep Vein Thrombosis: Yes Hx Pulmonary Embolism: Yes Hx Liver Disease: No Hx Renal Disease: Yes (recent ARF with rhabdomyolysis but currently resolved ) Hx Sickle Cell Disease: No Hx Seizures: No Hx Asthma: Yes (pt states no but has been using inhaler ) Hx COPD: Yes Hx HIV: No Additional medical history: AAA, afib - Surgical History Hx Pacemaker: No Hx Internal Defibrillator: No Additional Surgical History: AAA, blood clot in right leg, left rotator cuff surgery, torn meniscus in left knee - Social History Smoking Status: Current Every Day Smoker Substance Use Type: Alcohol - Medications Home Medications: Home Medications Medication Instructions Recorded Confirmed Last Taken Type Furosemide [Lasix TAB] 20 mg PO QDAY 12/16/16 12/29/16 Unknown History Metoprolol Xl [Metoprolol 50 mg PO QDAY 12/16/16 12/29/16 Unknown History SUCCINATE ER TAB] Potassium Chloride [K-Dur] 10 meq PO QDAY 12/16/16 12/29/16 Unknown History Enoxaparin [Lovenox] 40 mg SUB-Q QDAY syringe 12/21/16 12/29/16 Unknown Rx Warfarin [Coumadin] 10 mg PO DAILY@1700 tablet 12/21/16 12/29/16 Unknown Rx traMADol [Ultram 50 MG tab] 50 mg PO Q8HR PRN #12 tablet 01/04/17 Unknown Rx ED Physical Exam - Other Other exam information: General: No limitations, patient is alert in no acute distress Head exam: Atraumatic, normocephalic Eyes exam: Normal appearance, pupils equal reactive to light, extraocular movements intact ENT: Moist mucous membrane, normal oropharynx Neck exam: Normal inspection, full range of motion, no meningismus nontender Respiratory exam: Clear to auscultation bilateral, no wheezes, rales, crackles, reproducible right lower anterior rib tenderness. No ecchymosis or bruising Cardiovascular: Normal rate and rhythm, normal heart sounds Abdomen: Soft, nondistended, and nontender, with normal bowel sounds, no rebound, or guarding Extremity: Full range of motion normal inspection no deformity, tenderness or edema Back: Normal Inspection, full range of motion, no tenderness Neurologic: Alert, oriented x3, cranial nerves intact, no motor or sensory deficit Psychiatric: Labile mood Skin: Warm, dry, intact ED Course Vital Signs 01/03/17 01/04/17 19:40 01:31 Temperature 98 F 98 F Pulse Rate 80 93 H Respiratory 18 18 Rate Blood Pressure 140/80 Blood Pressure 105/65 [Left] O2 Sat by Pulse 98 98 Oximetry DAVE score - Dave Score Age > 65: (0) No Aspirin use within the Past 7 Days: (0) No 3 or more CAD Risk Factors: (1) Yes 2 or more Angina events in past 24 hrs: (1) Yes Known CAD with more than 50% Stenosis: (1) Yes Elevated Cardiac Markers: (0) No ST Deviation Greater than 0.5mm: (0) No DAVE Score: 3 ED Medical Decision Making - Lab Data Result diagrams: 01/03/17 19:34 01/03/17 19:34 Lab Results 11/26/17 11/26/17 11/26/17 Range/Units 19:34 19:34 19:34 WBC 4.6 (4.5-11.0) K/mm3 RBC 4.02 (3.65-5.03) M/mm3 Hgb 14.0 (10.1-14.3) gm/dl Hct 40.6 (30.3-42.9) % MCV 101 H (79-97) fl MCH 35 H (28-32) pg MCHC 34 (30-34) % RDW 15.4 H (13.2-15.2) % Plt Count 182 (140-440) K/mm3 Lymph % (Auto) 40.3 H (13.4-35.0) % [place] % (Auto) 13.7 H (0.0-7.3) % Eos % (Auto) 1.4 (0.0-4.3) % Baso % (Auto) 0.3 (0.0-1.8) % Lymph # 1.9 (1.2-5.4) K/mm3 [place] # 0.6 (0.0-0.8) K/mm3 Eos # 0.1 (0.0-0.4) K/mm3 Baso # 0.0 (0.0-0.1) K/mm3 Seg Neutrophils % 44.3 (40.0-70.0) % Seg Neutrophils # 2.1 (1.8-7.7) K/mm3 PT 14.2 (12.2-14.9) Sec. INR 1.05 (0.87-1.13) APTT 26.4 (24.2-36.6) Sec. Sodium 144 (137-145) mmol/L Potassium 4.2 (3.6-5.0) mmol/L Chloride 107.4 H (98-107) mmol/L Carbon Dioxide 20 L (22-30) mmol/L Anion Gap 21 mmol/L BUN 6 L (7-17) mg/dL Creatinine 0.6 L (0.7-1.2) mg/dL Estimated GFR > 60 ml/min BUN/Creatinine Ratio 10 % Glucose 95 (65-100) mg/dL Calcium 8.3 L (8.4-10.2) mg/dL Magnesium 1.80 (1.7-2.3) mg/dL Total Creatine Kinase 95 (30-135) units/L CK-MB (CK-2) 3.0 (0.0-4.0) ng/mL CK-MB (CK-2) Rel Index 3.1 (0-4) Troponin T < 0.010 (0.00-0.029) ng/mL Plasma/Serum Alcohol (0-0.07) gm% 01/03/17 Range/Units 19:34 WBC (4.5-11.0) K/mm3 RBC (3.65-5.03) M/mm3 Hgb (10.1-14.3) gm/dl Hct (30.3-42.9) % MCV (79-97) fl MCH (28-32) pg MCHC (30-34) % RDW (13.2-15.2) % Plt Count (140-440) K/mm3 Lymph % (Auto) (13.4-35.0) % [place] % (Auto) (0.0-7.3) % Eos % (Auto) (0.0-4.3) % Baso % (Auto) (0.0-1.8) % Lymph # (1.2-5.4) K/mm3 [place] # (0.0-0.8) K/mm3 Eos # (0.0-0.4) K/mm3 Baso # (0.0-0.1) K/mm3 Seg Neutrophils % (40.0-70.0) % Seg Neutrophils # (1.8-7.7) K/mm3 PT (12.2-14.9) Sec. INR (0.87-1.13) APTT (24.2-36.6) Sec. Sodium (137-145) mmol/L Potassium (3.6-5.0) mmol/L Chloride (98-107) mmol/L Carbon Dioxide (22-30) mmol/L Anion Gap mmol/L BUN (7-17) mg/dL Creatinine (0.7-1.2) mg/dL Estimated GFR ml/min BUN/Creatinine Ratio % Glucose (65-100) mg/dL Calcium (8.4-10.2) mg/dL Magnesium (1.7-2.3) mg/dL Total Creatine Kinase (30-135) units/L CK-MB (CK-2) (0.0-4.0) ng/mL CK-MB (CK-2) Rel Index (0-4) Troponin T (0.00-0.029) ng/mL Plasma/Serum Alcohol 0.28 H (0-0.07) gm% - EKG Data -: EKG Interpreted by Me EKG shows normal: sinus rhythm, axis (86), QRS complexes (89), ST-T waves (no stemi/t inv) Rate: normal (95) - EKG Data When compared to previous EKG there are: no significant change - Medical Decision Making Patient is acutely intoxicated in the ED. Her pain appears to be chronic and ongoing secondary to rib fracture. No new injury reported. Patient's sister is not answering the phone after multiple attempts and therefore patient does not have a safe discharge home. Patient states she is primarily wheelchair bound. Patient will be held here in the a.m. until child welfare social worker can assure her safe discharge home. CIWA protocol ordered in case patient begins to experience alcohol which all symptoms while waiting for transfer home. Patient states she has a history of narcotic abuse and does not want Percocet to go home with. She instead wants tramadol. Patient is at risk for seizures secondary to alcohol withdrawal can increase with tramadol as well. Patient will be given 12 tablets of tramadol and encouraged to follow with her primary care doctor for further medication and treatment. Patient declined chest x-ray today and has had several recent negative x-rays with similar pain. Patient also had recent negative PE workup for the same type of pain and admits to noncompliance with Xarelto. No signs of hypoxia or tachycardia at this time (1: 40am) - Differential Diagnosis rib fracture, chronic pain, alcohol intoxication, PE, AR Critical Care Time: No Critical care attestation.: If time is entered above; I have spent that time in minutes in the direct care of this critically ill patient, excluding procedure time. ED Disposition Clinical Impression: Discharge planning issues, Acute alcohol abuse, Rib pain on right side, History of rib fracture Disposition: DC-01 TO HOME OR SELFCARE Is pt being admited?: No Condition: Stable Instructions: Rib Fracture (ED), Abuse of Alcohol (ED) Additional Instructions: Follow up with your doctor for further treatment of your on going rib pain. Follow up with Sara for help with alcohol detoxification Prescriptions: traMADol [Ultram 50 MG tab] 50 mg PO Q8HR PRN #12 tablet PRN Reason: Pain Referrals: PRIMARY CAREMD [Primary Care Provider] - 3-5 Days md sara [Other] - 3-5 Days Time of Disposition: 01:43 (awaiting safe discharge home)
[2017-01-03] MEDS: DILAUDID IV ONE ×2 (19:39→23:57)
[2017-01-03] MEDS: ZOFRAN IV ONE (19:40)
[2017-01-03 19:53] LABS: Basophils % (Auto) 0.3 % (0.0-1.8); Eosinophils % (Auto) 1.4 % (0.0-4.3); Hematocrit 40.6 % (30.3-42.9); Mean Corpuscular HGB Conc 34 % (30-34); Mean Corpuscular Hemoglobin 35 pg (28-32); Mean Corpuscular Volume 101 fl (79-97); Platelet Count 182 K/mm3 (140-440); Red Blood Count 4.02 M/mm3 (3.65-5.03); Red Cell Distribution Width 15.4 % (13.2-15.2); White Blood Count 4.6 K/mm3 (4.5-11.0)
[2017-01-03 20:01] LABS: Anion Gap 21 mmol/L; BUN/Creatinine Ratio 10; Blood Urea Nitrogen 6 mg/dL (7-17); Calcium 8.3 mg/dL (8.4-10.2); Carbon Dioxide 20 mmol/L (22-30); Chloride 107.4 mmol/L (98-107); Creatine Kinase 95 units/L (30-135); Glucose 95 mg/dL (65-100); Potassium 4.2 mmol/L (3.6-5.0); Sodium 144 mmol/L (137-145)
[2017-01-03 20:03] LABS: INR 1.05 (0.87-1.13)
[2017-01-03 20:04] LABS: Partial Thromboplastin Time 26.4 Sec. (24.2-36.6)
[2017-01-04] MEDS ORDERED: ATIVAN IV PRN ×2 (01:11)
[2017-01-04 11:02] VITALS: BP 118/80
== END 2017-01-04 11:00 | disposition home or self-care (01) ==
LOC: ED 17:38
DX: R07.81 Pleurodynia (principal); F10.10 Alcohol abuse, uncomplicated; I10 Essential (primary) hypertension; E11.9 Type 2 diabetes mellitus without complications; I50.9 Heart failure, unspecified; I26.99 Other pulmonary embolism without acute cor pulmonale; J45.909 Unspecified asthma, uncomplicated; J44.9 Chronic obstructive pulmonary disease, unspecified; I25.2 Old myocardial infarction; F17.200 Nicotine dependence, unspecified, uncomplicated; Z79.01 Long term (current) use of anticoagulants; Z88.8 Allergy status to other drugs, medicaments and biological substances
CPT/HCPCS: 93005; 93010; 96374; 96375; 96376; 99284; J1170; J2405; 36415; 80048; 80320; 82550; 82553; 83735; 84484; 85025; 85610; 85730; G0480

== ENCOUNTER 2017-09-18 22:03 | Inpatient (IN) | payer MEDICARE ==
[2017-09-18] MEDS ORDERED: ATROVENT IH ONE (22:52)
[2017-09-18] MEDS ORDERED: PROVENTIL IH ONE (22:52)
[2017-09-18] MEDS ORDERED: SOLU-Medrol IV ONE (22:54)
[2017-09-18 23:26] LABS: Hematocrit 35.3 % (30.3-42.9); Mean Corpuscular HGB Conc 34 % (30-34); Mean Corpuscular Hemoglobin 32 pg (28-32); Mean Corpuscular Volume 95 fl (79-97); Platelet Count 177 K/mm3 (140-440); Red Blood Count 3.71 M/mm3 (3.65-5.03)
[2017-09-18 23:34] LABS: INR 1.09 (0.87-1.13)
[2017-09-18 23:35] LABS: Partial Thromboplastin Time 25.7 Sec. (24.2-36.6)
--- NOTE | 2017-09-18 23:46 | XRay Report ---
FINAL REPORT PROCEDURE: XR CHEST 1V AP TECHNIQUE: Chest radiograph anteroposterior view. CPT 71885 HISTORY: Shortness of breath COMPARISON: Prior chest x-ray 09/05/2017 FINDINGS: The heart remains diffusely enlarged. Upper lobe vasculature mildly distended although sharply defined. No pulmonary edema or pleural effusions are seen. Small amount of patchy alveolar density present in the right base suggesting a small amount of atelectasis. Subsegmental infiltrate cannot be excluded. Lungs otherwise are clear. No acute bony abnormalities are identified. IMPRESSION: Cardiomegaly and mild pulmonary venous hypertension changes visualized. No pulmonary edema seen. Minimal patchy density right base suggesting a small amount of atelectasis. A subsegmental infiltrate needs clinical exclusion..
[2017-09-18 23:57] LABS: Creatine Kinase MB 2.9 ng/mL (0.0-4.0)
[2017-09-18 23:58] LABS: BUN/Creatinine Ratio 33; Blood Urea Nitrogen 23 mg/dL (7-17); Calcium 8.6 mg/dL (8.4-10.2); Hemolysis Index 4
--- NOTE | 2017-09-19 01:16 | Emergency Department Report ---
ED Shortness of Breath HPI - General Chief Complaint: Dyspnea/Respdistress Stated Complaint: ESTEPHANIE Time Seen by Provider: 09/18/17 22:44 Source: EMS, old records reviewed Mode of arrival: Stretcher Limitations: No Limitations - History of Present Illness Initial Comments: 57 year old female with a past medical history of COPD (on 2 liters of home oxygen), asthma, CHF, DVT, diabetes, hypertension, pulmonary embolism, AAA status post repair, and sensation fibrillation presents to the hospital complaints of chest tightness and shortness breath for a couple of days. Push complains of a lot of wheezing without improvement with neb use. Complains of a cough but no fever. Patient was just admitted here 09/05 until September 14 for acute hypoxic respiratory failure, pneumonia, COPD exacerbation, and CHF. During that admission patient had some rectal bleeding so she was told to hold her Coumadin. Patient also had hallucinations and there was concern for possible schizophrenia and bipolar disease. She was discharged to take prednisone 20 mg once a day for 7 days and states she did take a dose this morning. Patient states she's been compliant with all her prescribed medications but now feels similar to when she was admitted recently. Patient also to having continued right sided pleuritic chest pain which has been present since last admission. Patient states this is also the area of her diagnosed pneumonia. - Related Data Home Medications Medication Instructions Recorded Confirmed Last Taken Potassium Chloride [K-Dur] 10 meq PO QDAY 12/16/16 09/08/17 Unknown Previous Rx's Medication Instructions Recorded Last Taken Type traMADol [Ultram 50 MG tab] 50 mg PO Q8HR PRN #12 tablet 01/04/17 Unknown Rx Benzonatate [Tessalon Perles] 100 mg PO Q6HR PRN #20 capsule 09/14/17 Unknown Rx Furosemide [Lasix TAB] 20 mg PO QDAY #30 tablet 09/14/17 Unknown Rx Metoprolol Xl [Metoprolol 50 mg PO QDAY #30 tablet 09/14/17 Unknown Rx SUCCINATE ER TAB] Nicotine [Habitrol] 21 mg TD QDAY #30 patch 09/14/17 Unknown Rx Olanzapine [Zyprexa] 5 mg PO QHS PRN #30 tablet 09/14/17 Unknown Rx Warfarin [Coumadin] 7.5 mg PO DAILY@1700 #30 tablet 09/14/17 Unknown Rx predniSONE [Deltasone] 20 mg PO QDAY #7 tablet 09/14/17 Unknown Rx Allergies Allergy/AdvReac Type Severity Reaction Status Date / Time Iodinated Contrast- Oral and Allergy Hives Verified 09/18/17 22:33 IV Dye [Iodinated Contrast Media - IV Dye] ED Review of Systems ROS: Stated complaint: ESTEPHANIE Other details as noted in HPI Comment: All other systems reviewed and negative ED Past Medical Hx - Past Medical History Hx Hypertension: Yes Hx Heart Attack/AMI: No Hx Congestive Heart Failure: Yes Hx Diabetes: Yes Hx Deep Vein Thrombosis: Yes Hx Pulmonary Embolism: Yes Hx Liver Disease: No Hx Renal Disease: Yes (recent ARF with rhabdomyolysis but currently resolved ) Hx Sickle Cell Disease: No Hx Seizures: No Hx Asthma: Yes (pt states no but has been using inhaler ) Hx COPD: Yes Hx HIV: No Additional medical history: AAA, afib, Emphysema - Surgical History Hx Pacemaker: No Hx Internal Defibrillator: No Additional Surgical History: AAA, blood clot in right leg, left rotator cuff surgery, torn meniscus in left knee - Social History Smoking Status: Never Smoker Substance Use Type: None - Medications Home Medications: Home Medications Medication Instructions Recorded Confirmed Last Taken Type Potassium Chloride [K-Dur] 10 meq PO QDAY 12/16/16 09/08/17 Unknown History traMADol [Ultram 50 MG tab] 50 mg PO Q8HR PRN #12 tablet 01/04/17 09/08/17 Unknown Rx Benzonatate [Tessalon Perles] 100 mg PO Q6HR PRN #20 capsule 09/14/17 Unknown Rx Furosemide [Lasix TAB] 20 mg PO QDAY #30 tablet 09/14/17 Unknown Rx Metoprolol Xl [Metoprolol 50 mg PO QDAY #30 tablet 09/14/17 Unknown Rx SUCCINATE ER TAB] Nicotine [Habitrol] 21 mg TD QDAY #30 patch 09/14/17 Unknown Rx Olanzapine [Zyprexa] 5 mg PO QHS PRN #30 tablet 09/14/17 Unknown Rx Warfarin [Coumadin] 7.5 mg PO DAILY@1700 #30 tablet 09/14/17 Unknown Rx predniSONE [Deltasone] 20 mg PO QDAY #7 tablet 09/14/17 Unknown Rx ED Physical Exam - General Limitations: No Limitations - Other Other exam information: General: No limitations, patient is alert in no acute distress Head exam: Atraumatic, normocephalic Eyes exam: Normal appearance, pupils equal reactive to light, extraocular movements intact ENT: Moist mucous membrane, normal oropharynx Neck exam: Normal inspection, full range of motion, no meningismus nontender Respiratory exam: Diminished breath sounds with expiratory wheezing, no accessory muscle use Cardiovascular: Normal rate and rhythm Abdomen: Soft, nondistended, and nontender, with normal bowel sounds, no rebound, or guarding Extremity: Full range of motion, bilateral 1+ pitting lower extremity edema. no tenderness or leg asymmetry Back: Normal Inspection, full range of motion, no tenderness Neurologic: Alert, oriented x3, cranial nerves intact, no motor or sensory deficit Psychiatric: normal affect, normal mood Skin: Warm, dry, intact ED Course Vital Signs 09/18/17 09/18/17 09/18/17 22:50 23:00 23:16 Pulse Rate [ Anterior] Respiratory Rate Respiratory Rate [Anterior] Blood Pressure 183/91 O2 Sat by Pulse 98 97 96 Oximetry 09/18/17 09/18/17 09/18/17 23:30 23:34 23:44 Pulse Rate [ 78 Anterior] Respiratory 22 Rate Respiratory 22 Rate [Anterior] Blood Pressure 188/95 O2 Sat by Pulse 98 99 Oximetry - Reevaluation(s) Reevaluation #1: 09/19/17 01:28 She states she is feeling better after Solu-Medrol, albuterol 7.5 mg, Atrovent 1 mg. However, she is not feeling completely back to normal ED Medical Decision Making - Lab Data Result diagrams: 09/18/17 22:53 09/18/17 22:53 Lab Results 09/18/17 09/18/17 09/18/17 Range/Units 22:53 22:53 22:53 WBC 13.3 H (4.5-11.0) K/mm3 RBC 3.71 (3.65-5.03) M/mm3 Hgb 12.0 (10.1-14.3) gm/dl Hct 35.3 (30.3-42.9) % MCV 95 (79-97) fl MCH 32 (28-32) pg MCHC 34 (30-34) % RDW 16.0 H (13.2-15.2) % Plt Count 177 (140-440) K/mm3 PT 14.7 (12.2-14.9) Sec. INR 1.09 (0.87-1.13) APTT 25.7 (24.2-36.6) Sec. Sodium 147 H (137-145) mmol/L Potassium 3.7 (3.6-5.0) mmol/L Chloride 107.9 H (98-107) mmol/L Carbon Dioxide 28 (22-30) mmol/L Anion Gap 15 mmol/L BUN 23 H (7-17) mg/dL Creatinine 0.7 (0.7-1.2) mg/dL Estimated GFR > 60 ml/min BUN/Creatinine Ratio 33 % Glucose 82 (65-100) mg/dL Calcium 8.6 (8.4-10.2) mg/dL Total Creatine Kinase (30-135) units/L CK-MB (CK-2) (0.0-4.0) ng/mL CK-MB (CK-2) Rel Index (0-4) Troponin T (0.00-0.029) ng/mL NT-Pro-B Natriuret Pep (0-900) pg/mL 09/18/17 09/18/17 Range/Units 22:53 22:53 WBC (4.5-11.0) K/mm3 RBC (3.65-5.03) M/mm3 Hgb (10.1-14.3) gm/dl Hct (30.3-42.9) % MCV (79-97) fl MCH (28-32) pg MCHC (30-34) % RDW (13.2-15.2) % Plt Count (140-440) K/mm3 PT (12.2-14.9) Sec. INR (0.87-1.13) APTT (24.2-36.6) Sec. Sodium (137-145) mmol/L Potassium (3.6-5.0) mmol/L Chloride (98-107) mmol/L Carbon Dioxide (22-30) mmol/L Anion Gap mmol/L BUN (7-17) mg/dL Creatinine (0.7-1.2) mg/dL Estimated GFR ml/min BUN/Creatinine Ratio % Glucose (65-100) mg/dL Calcium (8.4-10.2) mg/dL Total Creatine Kinase 65 (30-135) units/L CK-MB (CK-2) 2.9 (0.0-4.0) ng/mL CK-MB (CK-2) Rel Index 4.4 H (0-4) Troponin T < 0.010 (0.00-0.029) ng/mL NT-Pro-B Natriuret Pep 7783 H (0-900) pg/mL - EKG Data -: EKG Interpreted by Me EKG shows normal: sinus rhythm, axis (qrs -1), QRS complexes (qrsd 81), ST-T waves (lat and inf t inv) Rate: normal (89) - EKG Data When compared to previous EKG there are: no significant change (comapred to 09/05) - Radiology Data Radiology results: report reviewed FINAL REPORT PROCEDURE: XR CHEST 1V AP TECHNIQUE: Chest radiograph anteroposterior view. CPT 34181 HISTORY: Shortness of breath COMPARISON: Prior chest x-ray 09/05/2017 FINDINGS: The heart remains diffusely enlarged. Upper lobe vasculature mildly distended although sharply defined. No pulmonary edema or pleural effusions are seen. Small amount of patchy alveolar density present in the right base suggesting a small amount of atelectasis. Subsegmental infiltrate cannot be excluded. Lungs otherwise are clear. No acute bony abnormalities are identified. IMPRESSION: Cardiomegaly and mild pulmonary venous hypertension changes visualized. No pulmonary edema seen. Minimal patchy density right base suggesting a small amount of atelectasis. A subsegmental infiltrate needs clinical exclusion.. - Medical Decision Making Patient treated in the ED with Solu-Medrol and NEbs with improvement in respiratory symptoms Patient continues to have right sided pleuritic chest pain with findings of atelectasis versus infiltrate Patient has a leukocytosis which could be secondary infection or steroid use Blood cultures ordered to possibility of pneumonia and patient will be covered with Levaquin - Differential Diagnosis COPD, pneumonia, PE, atelectasis, RI Critical Care Time: No Critical care attestation.: If time is entered above; I have spent that time in minutes in the direct care of this critically ill patient, excluding procedure time. 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
[2017-09-19] MEDS ORDERED: LEVAQUIN 750MG/150ML 750 MG/150 ML BAG IV ONE (01:31)
[2017-09-19] MEDS ORDERED: ATIVAN IV PRN (02:20)
[2017-09-19] MEDS ORDERED: ZOFRAN IV PRN (02:25)
[2017-09-19] MEDS ORDERED: D50W (25GM) Syringe IV PRN (02:25)
[2017-09-19] MEDS ORDERED: TYLENOL PO PRN (02:25)
[2017-09-19] MEDS ORDERED: SODIUM CHLORIDE FLUSH SYRINGE 10 ML IV PRN (02:25)
[2017-09-19 03:18] LABS: Hematocrit 37.2 % (30.3-42.9); Hemoglobin 12.4 gm/dl (10.1-14.3); Mean Corpuscular HGB Conc 33 % (30-34); Mean Corpuscular Hemoglobin 32 pg (28-32); Mean Corpuscular Volume 96 fl (79-97); Platelet Count 180 K/mm3 (140-440); Red Blood Count 3.89 M/mm3 (3.65-5.03); Red Cell Distribution Width 15.9 % (13.2-15.2)
[2017-09-19 03:20] LABS: Anisocytosis 1+; Band Neutrophils # (Manual) 0.4 K/mm3; Basophils % (Manual) 0 % (0.0-1.8); Platelet Estimate Consistent w Auto; Total Cells Counted 100
[2017-09-19] MEDS ORDERED: APRESOLINE ONE (04:03)
[2017-09-19] MEDS: APRESOLINE IV PRN (04:09)
[2017-09-19 04:45] LABS: Anisocytosis 1+; Band Neutrophils # (Manual) 0.4 K/mm3; Basophils % (Manual) 0 % (0.0-1.8); Eosinophils % (Manual) 0 % (0.0-4.3); Myelocytes # (Manual) 0.2 K/mm3; Platelet Estimate Consistent w Auto; Total Cells Counted 100
[2017-09-19] MEDS ORDERED: DILAUDID IV ONE (05:15)
[2017-09-19] MEDS: SOLU-Medrol IV SCH ×4 (05:30→17:38)
--- NOTE | 2017-09-19 05:33 | History and Physical Report ---
History of Present Illness Date of examination: 09/19/17 Date of admission: 09/19/17 02:25 History of present illness: 57-year-old woman with a history of hypertension, diabetes, CHF, COPD, history of PE, DVT, A. fib, bipolar comes to emergency room today with complaints of shortness of breath, wheezing, not really related her nebulizer treatments. Also complaining of PND, orthopnea and no extremity edema. She complains of chest pain described as a tightness in the anterior chest and also on the right side in the thoracic area, intermittent less than 5 minutes, intensity followed 10, no radiation. Denies nausea vomiting, sharp diaphoresis or palpitation. Patient was discharged from the hospital one week ago, her Coumadin was discontinued which was thought to be due to lower GI bleed, she has not resume her Coumadin Review of systems Constitutional: no weight loss, chills, fever Ears, eyes, nose, mouth and throat: no nasal congestion, no nasal discharge, no sinus pressure, no vision change, no red eye. Neck: No neck pain or rigidity. Cardiovascular: no , palpitations Respiratory: no cough, +shortness of breath Gastrointestinal: no abdominal pain hematochezia Genitourinary : no frequency , no hematuria Musculoskeletal: no joint swelling or muscle ache Integumentary: no rash, no pruritis Neurological: no parathesias, no numbness, no focal weakness Endocrine: no cold or heat intolerance, no polyuria or polydipsia Hematologic/Lymphatic: no easy bruising, no easy bleeding, no gland swelling Allergic/Immunologic: no urticaria, no angioedema. PAST MEDICAL HISTORY: hypertension, diabetes, CHF, COPD, history of PE, DVT, A. fib, bipolar PAST SURGICAL HISTORY: Abdominal aortic aneurysm repair, hysterectomy, left knee , right rotator cuff SOCIAL HISTORY: + Drink 3 beers a day, smoked 1 pack a day, no drugs, FAMILY HISTORY: Hypertension Medications and Allergies Allergies Allergy/AdvReac Type Severity Reaction Status Date / Time Iodinated Contrast- Oral and Allergy Hives Verified 09/18/17 22:33 IV Dye [Iodinated Contrast Media - IV Dye] Home Medications Medication Instructions Recorded Confirmed Last Taken Type Potassium Chloride [K-Dur] 10 meq PO QDAY 12/16/16 09/19/17 Unknown History traMADol [Ultram 50 MG tab] 50 mg PO Q8HR PRN #12 tablet 01/04/17 09/19/17 Unknown Rx Benzonatate [Tessalon Perles] 100 mg PO Q6HR PRN #20 capsule 09/14/17 09/19/17 Unknown Rx Furosemide [Lasix TAB] 20 mg PO QDAY #30 tablet 09/14/17 09/19/17 Unknown Rx Metoprolol Xl [Metoprolol 50 mg PO QDAY #30 tablet 09/14/17 09/19/17 Unknown Rx SUCCINATE ER TAB] Nicotine [Habitrol] 21 mg TD QDAY #30 patch 09/14/17 09/19/17 Unknown Rx Olanzapine [Zyprexa] 5 mg PO QHS PRN #30 tablet 09/14/17 09/19/17 Unknown Rx Warfarin [Coumadin] 7.5 mg PO DAILY@1700 #30 tablet 09/14/17 09/19/17 Unknown Rx predniSONE [Deltasone] 20 mg PO QDAY #7 tablet 09/14/17 09/19/17 Unknown Rx Active Meds: Active Medications Acetaminophen (Tylenol) 650 mg PO Q4H PRN PRN Reason: Pain MILD(1-3)/Fever >100.5/CORTES Albuterol/Ipratropium (Duoneb *Not For Prn Use*) 1 ampul IH Q6HRT [facility] Dextrose (D50w (25gm) Syringe) 50 ml IV PRN PRN PRN Reason: Hypoglycemia Hydralazine HCl (Apresoline) 5 mg IV Q6H PRN PRN Reason: Hypertension Last Admin: 09/19/17 04:09 Dose: 5 mg Insulin Human Lispro (Humalog) 0 unit SUB-Q [facility] ZE; Protocol Lorazepam (Ativan) 2 mg IV Q1HR PRN PRN Reason: CIWA-Ar 8-15 Lorazepam (Ativan) 4 mg IV Q1HR PRN PRN Reason: CIWA-Ar 16-25 Methylprednisolone Sodium Succinate (Solu-Medrol) 60 mg IV Q6HR ZE Last Admin: 09/19/17 05:30 Dose: 60 mg Ondansetron HCl (Zofran) 4 mg IV Q8H PRN PRN Reason: Nausea And Vomiting Pneumococcal Polyvalent Vaccine (Pneumovax 23) 0.5 ml IM .ONCE ONE Stop: 09/19/17 12:01 Sodium Chloride (Sodium Chloride Flush Syringe 10 Ml) 10 ml IV BID ZE Sodium Chloride (Sodium Chloride Flush Syringe 10 Ml) 10 ml IV PRN PRN PRN Reason: LINE FLUSH Exam - Physical Exam Narrative exam: Gen. appearance: Patient lying in bed, no apparent distress HEENT: Normocephalic, atraumatic, pupils equally round and reactive to light, extraocular movement intact, and no sclericterus,. No JVD or thyromegaly or nodule,neck supple, no carotid bruit ,mucous membranes moist, no exudate or erythema Heart: S1, S2, regular rate and rhythm Lungs: Decreased breath sounds, wheezing, breathing comfortable Abdomen: Positive bowel sounds, non-tender, nondistended, no organomegaly Extremity:no edema cyanosis, clubbing Skin: no rash, dry, warm Neuro: Oriented 3, cranial nerves II-12 intact, speech is fluent, motor and sensory intact - Constitutional Vitals: Temp Pulse Resp BP Pulse Ox 79 20 170/71 97 09/19/17 05:03 09/19/17 04:30 09/19/17 04:30 09/19/17 04:30 Results - Labs CBC & Chem 7: 09/19/17 02:53 09/18/17 22:53 Labs: Abnormal lab results 09/18/17 09/18/17 09/18/17 Range/Units 22:53 22:53 22:53 WBC 13.3 H (4.5-11.0) K/mm3 RDW 16.0 H (13.2-15.2) % Seg Neuts % (Manual) 73.0 H (40.0-70.0) % Lymphocytes % (Manual) 13.0 L (13.4-35.0) % Seg Neutrophils # Man 9.7 H (1.8-7.7) K/mm3 Lymphocytes # (Manual) (1.2-5.4) K/mm3 Monocytes # (Manual) 0.9 H (0.0-0.8) K/mm3 Sodium 147 H (137-145) mmol/L Chloride 107.9 H (98-107) mmol/L BUN 23 H (7-17) mg/dL CK-MB (CK-2) Rel Index 4.4 H (0-4) NT-Pro-B Natriuret Pep (0-900) pg/mL 09/18/17 09/19/17 Range/Units 22:53 02:53 WBC (4.5-11.0) K/mm3 RDW 15.9 H (13.2-15.2) % Seg Neuts % (Manual) 89.0 H (40.0-70.0) % Lymphocytes % (Manual) 2.0 L (13.4-35.0) % Seg Neutrophils # Man 8.6 H (1.8-7.7) K/mm3 Lymphocytes # (Manual) 0.2 L (1.2-5.4) K/mm3 Monocytes # (Manual) (0.0-0.8) K/mm3 Sodium (137-145) mmol/L Chloride (98-107) mmol/L BUN (7-17) mg/dL CK-MB (CK-2) Rel Index (0-4) NT-Pro-B Natriuret Pep 7783 H (0-900) pg/mL - Imaging and Cardiology EKG: report reviewed Chest x-ray: report reviewed Assessment and Plan Assessment CHF exacerbation COPD exacerbation Chest pain rule out PE A. fib Heme positive stool History of DVT, PE, Coumadin Hypertension Diabetes Bipolar Plan Admit to medicine Diurese and IV Lasix All beta rosana, start CANDACE inhibitor, no aspirin secondary to heme-positive stool Check cardiac enzymes, echo, consult cardiology Start high-dose steroids, nebulizer treatments Check CT chest, start Ciwa protocol with IV Ativan Consult GI, check Lasix and initiate insulin sliding scale DVT prophylaxis
[2017-09-19] MEDS: LASIX IV SCH ×2 (07:01→17:38)
[2017-09-19] MEDS: HumaLOG SUB-Q SCH ×3 (07:30→16:30)
[2017-09-19] MEDS: DUONEB *Not for PRN Use IH SCH ×3 (09:18→19:30)
[2017-09-19] MEDS ORDERED: ZESTRIL PO SCH (10:00)
--- NOTE | 2017-09-19 10:11 | Gastroenterology Consultation ---
History of Present Illness - Reason for Consult Consult date: 09/19/17 history of rectal bleeding Requesting physician: MARLON HARO - History of Present Illness The patient is a 57-year-old female for whom consultation was requested for recent rectal bleeding. She was seen here 8 days ago on her previous admission for the same complaint and had a normal hemoglobin at that time. Patient does have intermittent passage of bright red blood per rectum sometimes associated with straining or constipation. She has a history of colon polyps and had a colonoscopy 6 or 7 years ago elsewhere. She has advanced COPD and requires home oxygen through the patient has a history of congestive heart failure, obesity and a history of pulmonary emboli. She was not felt to be suitable for colonoscopy at this time and was also felt likely to have a local cause, probable hemorrhoids as the source of her bleeding. She has been on anticoagulation therapy. Currently she has been readmitted for progressive shortness of breath and right flank pain. She denies any significant blood in the stool. Her hemoglobin is presently over 12. Past History Past Medical History: COPD, heart failure, pulmonary embolism, other (morbid obesity) Social history: smoking Family history: no significant family history Medications and Allergies Allergies Allergy/AdvReac Type Severity Reaction Status Date / Time Iodinated Contrast- Oral and Allergy Hives Verified 09/18/17 22:33 IV Dye [Iodinated Contrast Media - IV Dye] Home Medications Medication Instructions Recorded Confirmed Last Taken Type Potassium Chloride [K-Dur] 10 meq PO QDAY 12/16/16 09/19/17 Unknown History traMADol [Ultram 50 MG tab] 50 mg PO Q8HR PRN #12 tablet 01/04/17 09/19/17 Unknown Rx Benzonatate [Tessalon Perles] 100 mg PO Q6HR PRN #20 capsule 09/14/17 09/19/17 Unknown Rx Furosemide [Lasix TAB] 20 mg PO QDAY #30 tablet 09/14/17 09/19/17 Unknown Rx Metoprolol Xl [Metoprolol 50 mg PO QDAY #30 tablet 09/14/17 09/19/17 Unknown Rx SUCCINATE ER TAB] Nicotine [Habitrol] 21 mg TD QDAY #30 patch 09/14/17 09/19/17 Unknown Rx Olanzapine [Zyprexa] 5 mg PO QHS PRN #30 tablet 09/14/17 09/19/17 Unknown Rx Warfarin [Coumadin] 7.5 mg PO DAILY@1700 #30 tablet 09/14/17 09/19/17 Unknown Rx predniSONE [Deltasone] 20 mg PO QDAY #7 tablet 09/14/17 09/19/17 Unknown Rx Active Meds: Active Medications Acetaminophen (Tylenol) 650 mg PO Q4H PRN PRN Reason: Pain MILD(1-3)/Fever >100.5/CORTES Albuterol/Ipratropium (Duoneb *Not For Prn Use*) 1 ampul IH Q6HRT [facility] Last Admin: 09/19/17 09:18 Dose: 1 ampul Dextrose (D50w (25gm) Syringe) 50 ml IV PRN PRN PRN Reason: Hypoglycemia Furosemide (Lasix) 40 mg IV 0600,1800 [facility] Last Admin: 09/19/17 07:01 Dose: 40 mg Hydralazine HCl (Apresoline) 5 mg IV Q6H PRN PRN Reason: Hypertension Last Admin: 09/19/17 04:09 Dose: 5 mg Insulin Human Lispro (Humalog) 0 unit SUB-Q ACHS [facility]; Protocol Lisinopril (Zestril) 20 mg PO QDAY [facility] Lorazepam (Ativan) 2 mg IV Q1HR PRN PRN Reason: CIWA-Ar 8-15 Lorazepam (Ativan) 4 mg IV Q1HR PRN PRN Reason: CIWA-Ar 16-25 Methylprednisolone Sodium Succinate (Solu-Medrol) 60 mg IV Q6HR [facility] Last Admin: 09/19/17 05:50 Dose: Not Given Nicotine (Habitrol) 21 mg TD QDAY [facility] Olanzapine (Zyprexa) 5 mg PO QHS PRN PRN Reason: Insomnia Ondansetron HCl (Zofran) 4 mg IV Q8H PRN PRN Reason: Nausea And Vomiting Pneumococcal Polyvalent Vaccine (Pneumovax 23) 0.5 ml IM .ONCE ONE Stop: 09/19/17 12:01 Sodium Chloride (Sodium Chloride Flush Syringe 10 Ml) 10 ml IV BID ZE Sodium Chloride (Sodium Chloride Flush Syringe 10 Ml) 10 ml IV PRN PRN PRN Reason: LINE FLUSH Review of Systems - Review of Systems Constitutional: no weight loss, no weight gain Eyes: no change in vision Ears, Nose, Throat: no decreased hearing, no epistaxis Breasts: deferred Cardiovascular: chest pain, shortness of breath Respiratory: shortness of breath, home oxygen Gastrointestinal: BRBPR, no abdominal pain, no nausea, no vomiting, no constipation, no change in bowel habits, no melena Rectal: pain, bleeding Female Genitourinary: deferred Musculoskeletal: no gait dysfunction, no joint pain, no muscle pain Integumentary: no deferred, no rash, no pruritis, no jaundice Neurological: no head injury, no paralysis, no weakness Psychiatric: anxiety Endocrine: no cold intolerance, no heat intolerance Hematologic/Lymphatic: no easy bruising, no easy bleeding Allergic/Immunologic: no wheezing Exam - Constitutional Vital Signs: Temp Pulse Resp BP Pulse Ox 79 22 170/71 97 09/19/17 05:03 09/19/17 05:38 09/19/17 04:30 09/19/17 04:30 General appearance: no acute distress, well-nourished, obese - EENT Eyes: PERRL ENT: hearing intact, clear oral mucosa, dentition normal - Neck Neck: supple, normal ROM, no masses or JVD - Respiratory Respiratory effort: normal Respiratory: bilateral: CTA - Breasts Breasts: deferred - Cardiovascular Rhythm: regular Heart Sounds: Present: S1 & S2. Absent: gallop, rub Extremities: pulses intact, No edema, normal color, Full ROM - Gastrointestinal General gastrointestinal: Present: soft, non-tender, non-distended, normal bowel sounds, other (obese). Absent: hepatomegaly, splenomegaly Rectal Exam: deferred - Genitourinary Female Genitourinary: deferred - Integumentary Integumentary: Present: clear, warm, dry - Neurologic Neurological: alert and oriented x3 - Psychiatric Psychiatric: appropriate mood/affect, intact judgment & insight, memory intact - Labs CBC & Chem 7: 09/19/17 02:53 09/18/17 22:53 Lab Results: Laboratory Results - last 24 hr 09/18/17 09/18/17 09/18/17 22:53 22:53 22:53 WBC 13.3 H RBC 3.71 Hgb 12.0 Hct 35.3 MCV 95 MCH 32 MCHC 34 RDW 16.0 H Plt Count 177 Add Manual Diff Complete Total Counted 100 Seg Neutrophils % Seg Neuts % (Manual) 73.0 H Band Neutrophils % 3.0 Lymphocytes % (Manual) 13.0 L Reactive Lymphs % (Man) 1.0 Monocytes % (Manual) 7.0 Eosinophils % (Manual) 1.0 Basophils % (Manual) 0 Metamyelocytes % 2.0 Myelocytes % 0 Promyelocytes % 0 Blast Cells % 0 Nucleated RBC % Not Reportable Seg Neutrophils # Man 9.7 H Band Neutrophils # 0.4 Lymphocytes # (Manual) 1.7 Abs React Lymphs (Man) 0.1 Monocytes # (Manual) 0.9 H Eosinophils # (Manual) 0.1 Basophils # (Manual) 0.0 Metamyelocytes # 0.3 Myelocytes # 0.0 Promyelocytes # 0.0 Blast Cells # 0.0 WBC Morphology Not Reportable Hypersegmented Neuts Not Reportable Hyposegmented Neuts Not Reportable Hypogranular Neuts Not Reportable Smudge Cells Not Reportable Toxic Granulation Not Reportable Toxic Vacuolation Not Reportable Dohle Bodies Not Reportable Pelger-Huet Anomaly Not Reportable Shai Rods Not Reportable Platelet Estimate Consistent w auto Clumped Platelets Not Reportable Plt Clumps, EDTA Not Reportable Large Platelets Not Reportable Giant Platelets Not Reportable Platelet Satelliting Not Reportable Plt Morphology Comment Not Reportable RBC Morphology Not Reportable Dimorphic RBCs Not Reportable Polychromasia Not Reportable Hypochromasia Not Reportable Poikilocytosis Not Reportable Anisocytosis 1+ Microcytosis Not Reportable Macrocytosis Not Reportable Spherocytes Not Reportable Pappenheimer Bodies Not Reportable Sickle Cells Not Reportable Target Cells Not Reportable Tear Drop Cells Not Reportable Ovalocytes Not Reportable Helmet Cells Not Reportable Giron-Lakeline Bodies Not Reportable [place]lew Rings Not Reportable Comer Cells Not Reportable Bite Cells Not Reportable Crenated Cell Not Reportable Elliptocytes Not Reportable Acanthocytes (Spur) Not Reportable Rouleaux Not Reportable Hemoglobin C Crystals Not Reportable Schistocytes Not Reportable Malaria parasites Not Reportable Jorden Bodies Not Reportable Hem Pathologist Commnt No PT 14.7 INR 1.09 APTT 25.7 Sodium 147 H Potassium 3.7 Chloride 107.9 H Carbon Dioxide 28 Anion Gap 15 BUN 23 H Creatinine 0.7 Estimated GFR > 60 BUN/Creatinine Ratio 33 Glucose 82 Calcium 8.6 Total Creatine Kinase CK-MB (CK-2) CK-MB (CK-2) Rel Index Troponin T NT-Pro-B Natriuret Pep 09/18/17 09/18/17 09/19/17 22:53 22:53 02:53 WBC 9.7 RBC 3.89 Hgb 12.4 Hct 37.2 MCV 96 MCH 32 MCHC 33 RDW 15.9 H Plt Count 180 Add Manual Diff Complete Total Counted 100 Seg Neutrophils % Experience Design Director Seg Neuts % (Manual) 89.0 H Band Neutrophils % 4.0 Lymphocytes % (Manual) 2.0 L Reactive Lymphs % (Man) 0 Monocytes % (Manual) 3.0 Eosinophils % (Manual) 0 Basophils % (Manual) 0 Metamyelocytes % 0 Myelocytes % 2.0 Promyelocytes % 0 Blast Cells % 0 Nucleated RBC % Not Reportable Seg Neutrophils # Man 8.6 H Band Neutrophils # 0.4 Lymphocytes # (Manual) 0.2 L Abs React Lymphs (Man) 0.0 Monocytes # (Manual) 0.3 Eosinophils # (Manual) 0.0 Basophils # (Manual) 0.0 Metamyelocytes # 0.0 Myelocytes # 0.2 Promyelocytes # 0.0 Blast Cells # 0.0 WBC Morphology Not Reportable Hypersegmented Neuts Not Reportable Hyposegmented Neuts Not Reportable Hypogranular Neuts Not Reportable Smudge Cells Not Reportable Toxic Granulation Not Reportable Toxic Vacuolation Not Reportable Dohle Bodies Not Reportable Pelger-Huet Anomaly Not Reportable Shai Rods Not Reportable Platelet Estimate Consistent w auto Clumped Platelets Not Reportable Plt Clumps, EDTA Not Reportable Large Platelets Not Reportable Giant Platelets Not Reportable Platelet Satelliting Not Reportable Plt Morphology Comment Not Reportable RBC Morphology Not Reportable Dimorphic RBCs Not Reportable Polychromasia Not Reportable Hypochromasia Not Reportable Poikilocytosis Not Reportable Anisocytosis 1+ Microcytosis Not Reportable Macrocytosis Not Reportable Spherocytes Not Reportable Pappenheimer Bodies Not Reportable Sickle Cells Not Reportable Target Cells Not Reportable Tear Drop Cells Not Reportable Ovalocytes Not Reportable Helmet Cells Not Reportable Giron-Lakeline Bodies Not Reportable Curlew Rings Not Reportable Comer Cells Not Reportable Bite Cells Not Reportable Crenated Cell Not Reportable Elliptocytes Not Reportable Acanthocytes (Spur) Not Reportable Rouleaux Not Reportable Hemoglobin C Crystals Not Reportable Schistocytes Not Reportable Malaria parasites Not Reportable Jorden Bodies Not Reportable Hem Pathologist Commnt No PT INR APTT Sodium Potassium Chloride Carbon Dioxide Anion Gap BUN Creatinine Estimated GFR BUN/Creatinine Ratio Glucose Calcium Total Creatine Kinase 65 CK-MB (CK-2) 2.9 CK-MB (CK-2) Rel Index 4.4 H Troponin T < 0.010 NT-Pro-B Natriuret Pep 7783 H Assessment and Plan - Patient Problems (1) Rectal bleeding Current Visit: Yes Status: Acute Plan to address problem: Bleeding appears to be minor once again. She is not yet suitable for considering colonoscopy which she should have in the future as an outpatient. Her hemoglobin is normal as it was on the last admission. Thank you for this consultation. I will sign off and see her again at your request during this admission and plan to see her as an outpatient. (2) COPD exacerbation Current Visit: Yes Status: Acute (3) O2 dependent Current Visit: Yes Status: Acute (4) Pulmonary infiltrate in right lung on chest x-ray Current Visit: Yes Status: Acute (5) Acute exacerbation of CHF (congestive heart failure) Current Visit: No Status: Acute Qualifiers: Heart failure type: combined systolic and diastolic Qualified Code(s): I50.43 - Acute on chronic combined systolic (congestive) and diastolic ( congestive) heart failure
[2017-09-19] MEDS: HABITROL TD SCH (10:41)
[2017-09-19] MEDS: ZESTRIL PO SCH (10:42)
[2017-09-19] MEDS: SODIUM CHLORIDE FLUSH SYRINGE 10 ML IV SCH ×2 (10:43→22:01)
[2017-09-19] MEDS ORDERED: PNEUMOVAX 23 IM ONE (12:00)
[2017-09-19] MEDS ORDERED: NORCO 7.5/325 PO PRN (13:54)
--- NOTE | 2017-09-19 13:54 | Progress Note ---
History Interval history: Patient is a 57-year-old female with a history of hypertension, diabetes, CHF, COPD, atrial fibrillation, PE with this a.m. with shortness of breath wheezing and atypical chest pain. Patient was seen here one week ago and discontinue. Patient had possible lower GI bleed at this time. Presents this time on his breath and wheezing chest pain chest x-ray found have minimal patchy densities or infiltrates. Initial workup consistent with COPD exacerbation with mild wheezing. Need and we'll ruling out congestive heart failure as etiology ruling out pulmonary embolism as well. Patient also have malignant hypertension we will increase her CANDACE inhibitor to 20 mg daily. Aspirin was held secondary to possible GI bleed. She is not anemic at this time H&H remained stable. No evidence of bleeding on physical exam. Important to note that patient stated that she was in pain just all over across her toes her knees and across her back. When asked what patient takes for pain at home she stated nothing. But here she wanted Dilaudid. She asked for that right away as the first line of treatment. Patient then proceeded to tell me that she did have a problem using opioids in the past and did not want to go down that road however this is all she is asking for this time. She states Tylenol will not get the job done for her and she feels like she is miserable and suffering. Likely does not appear to be in that much pain in detail the patient this. Did not appear to she will require morphine or Dilaudid. Patient was noted prior to coming in and during the physical exam no screws at bedside. We'll give the patient to hydrocodone for now. Will not be so aggressive with pain control at this time given present history. Hospitalist Physical - Constitutional Vitals: Temp Pulse Resp BP Pulse Ox 78 18 154/70 96 09/19/17 11:43 09/19/17 11:43 09/19/17 11:43 09/19/17 11:43 Results - Labs CBC & Chem 7: 09/19/17 02:53 09/18/17 22:53 Labs: Laboratory Last Values WBC 9.7 K/mm3 (4.5-11.0) 09/19/17 02:53 RBC 3.89 M/mm3 (3.65-5.03) 09/19/17 02:53 Hgb 12.4 gm/dl (10.1-14.3) 09/19/17 02:53 Hct 37.2 % (30.3-42.9) 09/19/17 02:53 MCV 96 fl (79-97) 09/19/17 02:53 MCH 32 pg (28-32) 09/19/17 02:53 MCHC 33 % (30-34) 09/19/17 02:53 RDW 15.9 % (13.2-15.2) H 09/19/17 02:53 Plt Count 180 K/mm3 (140-440) 09/19/17 02:53 Add Manual Diff Complete 09/19/17 02:53 Total Counted 100 09/19/17 02:53 Seg Neutrophils % Jacquard Loom Carpet Weaver 09/19/17 02:53 Seg Neuts % (Manual) 89.0 % (40.0-70.0) H 09/19/17 02:53 Band Neutrophils % 4.0 % 09/19/17 02:53 Lymphocytes % (Manual) 2.0 % (13.4-35.0) L 09/19/17 02:53 Reactive Lymphs % (Man) 0 % 09/19/17 02:53 Monocytes % (Manual) 3.0 % (0.0-7.3) 09/19/17 02:53 Eosinophils % (Manual) 0 % (0.0-4.3) 09/19/17 02:53 Basophils % (Manual) 0 % (0.0-1.8) 09/19/17 02:53 Metamyelocytes % 0 % 09/19/17 02:53 Myelocytes % 2.0 % 09/19/17 02:53 Promyelocytes % 0 % 09/19/17 02:53 Blast Cells % 0 % 09/19/17 02:53 Nucleated RBC % Not Reportable 09/19/17 02:53 Seg Neutrophils # Man 8.6 K/mm3 (1.8-7.7) H 09/19/17 02:53 Band Neutrophils # 0.4 K/mm3 09/19/17 02:53 Lymphocytes # (Manual) 0.2 K/mm3 (1.2-5.4) L 09/19/17 02:53 Abs React Lymphs (Man) 0.0 K/mm3 09/19/17 02:53 Monocytes # (Manual) 0.3 K/mm3 (0.0-0.8) 09/19/17 02:53 Eosinophils # (Manual) 0.0 K/mm3 (0.0-0.4) 09/19/17 02:53 Basophils # (Manual) 0.0 K/mm3 (0.0-0.1) 09/19/17 02:53 Metamyelocytes # 0.0 K/mm3 09/19/17 02:53 Myelocytes # 0.2 K/mm3 09/19/17 02:53 Promyelocytes # 0.0 K/mm3 09/19/17 02:53 Blast Cells # 0.0 K/mm3 09/19/17 02:53 WBC Morphology Not Reportable 09/19/17 02:53 Hypersegmented Neuts Not Reportable 09/19/17 02:53 Hyposegmented Neuts Not Reportable 09/19/17 02:53 Hypogranular Neuts Not Reportable 09/19/17 02:53 Smudge Cells Not Reportable 09/19/17 02:53 Toxic Granulation Not Reportable 09/19/17 02:53 Toxic Vacuolation Not Reportable 09/19/17 02:53 Dohle Bodies Not Reportable 09/19/17 02:53 Pelger-Huet Anomaly Not Reportable 09/19/17 02:53 Shai Rods Not Reportable 09/19/17 02:53 Platelet Estimate Consistent w auto 09/19/17 02:53 Clumped Platelets Not Reportable 09/19/17 02:53 Plt Clumps, EDTA Not Reportable 09/19/17 02:53 Large Platelets Not Reportable 09/19/17 02:53 Giant Platelets Not Reportable 09/19/17 02:53 Platelet Satelliting Not Reportable 09/19/17 02:53 Plt Morphology Comment Not Reportable 09/19/17 02:53 RBC Morphology Not Reportable 09/19/17 02:53 Dimorphic RBCs Not Reportable 09/19/17 02:53 Polychromasia Not Reportable 09/19/17 02:53 Hypochromasia Not Reportable 09/19/17 02:53 Poikilocytosis Not Reportable 09/19/17 02:53 Anisocytosis 1+ 09/19/17 02:53 Microcytosis Not Reportable 09/19/17 02:53 Macrocytosis Not Reportable 09/19/17 02:53 Spherocytes Not Reportable 09/19/17 02:53 Pappenheimer Bodies Not Reportable 09/19/17 02:53 Sickle Cells Not Reportable 09/19/17 02:53 Target Cells Not Reportable 09/19/17 02:53 Tear Drop Cells Not Reportable 09/19/17 02:53 Ovalocytes Not Reportable 09/19/17 02:53 Helmet Cells Not Reportable 09/19/17 02:53 Giron-Snyder Bodies Not Reportable 09/19/17 02:53 [place] Rings Not Reportable 09/19/17 02:53 Camila Cells Not Reportable 09/19/17 02:53 Bite Cells Not Reportable 09/19/17 02:53 Crenated Cell Not Reportable 09/19/17 02:53 Elliptocytes Not Reportable 09/19/17 02:53 Acanthocytes (Spur) Not Reportable 09/19/17 02:53 Rouleaux Not Reportable 09/19/17 02:53 Hemoglobin C Crystals Not Reportable 09/19/17 02:53 Schistocytes Not Reportable 09/19/17 02:53 Malaria parasites Not Reportable 09/19/17 02:53 Jorden Bodies Not Reportable 09/19/17 02:53 Hem Pathologist Commnt No 09/19/17 02:53 PT 14.7 Sec. (12.2-14.9) 09/18/17 22:53 INR 1.09 (0.87-1.13) 09/18/17 22:53 APTT 25.7 Sec. (24.2-36.6) 09/18/17 22:53 Sodium 147 mmol/L (137-145) H 09/18/17 22:53 Potassium 3.7 mmol/L (3.6-5.0) 09/18/17 22:53 Chloride 107.9 mmol/L (98-107) H 09/18/17 22:53 Carbon Dioxide 28 mmol/L (22-30) 09/18/17 22:53 Anion Gap 15 mmol/L 09/18/17 22:53 BUN 23 mg/dL (7-17) H 09/18/17 22:53 Creatinine 0.7 mg/dL (0.7-1.2) 09/18/17 22:53 Estimated GFR > 60 ml/min 09/18/17 22:53 BUN/Creatinine Ratio 33 % 09/18/17 22:53 Glucose 82 mg/dL (65-100) 09/18/17 22:53 Calcium 8.6 mg/dL (8.4-10.2) 09/18/17 22:53 Total Creatine Kinase 65 units/L (30-135) 09/18/17 22:53 CK-MB (CK-2) 2.9 ng/mL (0.0-4.0) 09/18/17 22:53 CK-MB (CK-2) Rel Index 4.4 (0-4) H 09/18/17 22:53 Troponin T < 0.010 ng/mL (0.00-0.029) 09/18/17 22:53 NT-Pro-B Natriuret Pep 7783 pg/mL (0-900) H 09/18/17 22:53
[2017-09-19] MEDS: ATIVAN IV PRN (22:01)
[2017-09-20] MEDS: SOLU-Medrol IV SCH ×5 (00:54→23:37)
[2017-09-20] MEDS: HumaLOG SUB-Q SCH ×5 (00:55→23:42)
[2017-09-20] MEDS: NORCO 5/325 PO PRN ×2 (01:13→22:33)
[2017-09-20] MEDS: DUONEB *Not for PRN Use IH SCH ×4 (01:26→19:48)
[2017-09-20] MEDS: ATIVAN IV PRN ×3 (04:34→23:38)
[2017-09-20 06:11] LABS: Basophils % (Auto) 0.3 % (0.0-1.8); Hematocrit 33.5 % (30.3-42.9); Hemoglobin 11.6 gm/dl (10.1-14.3); Lymphocytes # (Auto) 0.4 K/mm3 (1.2-5.4); Lymphocytes % (Auto) 5.9 % (13.4-35.0); Mean Corpuscular HGB Conc 35 % (30-34); Mean Corpuscular Hemoglobin 33 pg (28-32); Mean Corpuscular Volume 94 fl (79-97); Monocytes # (Auto) 0.4 K/mm3 (0.0-0.8); Monocytes % (Auto) 6.3 % (0.0-7.3); Platelet Count 167 K/mm3 (140-440); Red Blood Count 3.56 M/mm3 (3.65-5.03); Red Cell Distribution Width 15.6 % (13.2-15.2)
[2017-09-20 06:41] LABS: BUN/Creatinine Ratio 36; Blood Urea Nitrogen 25 mg/dL (7-17); Calcium 8.1 mg/dL (8.4-10.2); Hemolysis Index 6
[2017-09-20] MEDS: LASIX IV SCH ×2 (06:44→17:47)
[2017-09-20 07:05] LABS: INR 1.05 (0.87-1.13)
[2017-09-20 07:35] LABS: Partial Thromboplastin Time 24.9 Sec. (24.2-36.6)
[2017-09-20] MEDS: ZESTRIL PO SCH (09:42)
[2017-09-20] MEDS: HABITROL TD SCH (09:42)
[2017-09-20] MEDS: SODIUM CHLORIDE FLUSH SYRINGE 10 ML IV SCH ×2 (09:44→22:34)
--- NOTE | 2017-09-20 10:20 | Progress Note ---
Assessment and Plan Shortness of breath likely form SHF exercebation CHF exacerbation COPD exacerbation Chest pain rule out PE H/O A. fib History of DVT, PE, Coumadin Hypertension Diabetes Bipolar Plan Diurese and IV Lasix beta rosana, start CANDACE inhibitor, Start high-dose steroids, nebulizer treatments Check CT chest, start Ciwa protocol with IV Ativan Consult GI, check Lasix and initiate insulin sliding scale DVT prophylaxis Subjective Date of service: 09/20/17 Principal diagnosis: shortnesso f breath ans wheezing Interval history: c/o sever anxiety, cough but no chest pain Objective - Constitutional Vitals: Vital Signs - 12hr 09/20/17 09/20/17 09/20/17 01:04 01:05 04:29 Temperature 97.7 F 98.3 F 97.6 F Pulse Rate 88 87 81 Pulse Rate [ Anterior] Respiratory 20 Rate Respiratory Rate [Anterior] Blood Pressure 165/84 173/85 O2 Sat by Pulse 94 98 Oximetry 09/20/17 09/20/17 09/20/17 07:20 08:00 08:10 Temperature 97.3 F L Pulse Rate 79 Pulse Rate [ 68 67 Anterior] Respiratory 20 Rate Respiratory 18 19 Rate [Anterior] Blood Pressure 163/86 O2 Sat by Pulse 95 98 Oximetry General appearance: Present: no acute distress, well-nourished - EENT Eyes: PERRL, EOM intact Ears: bilateral: normal - Neck Neck: supple, normal ROM - Respiratory Respiratory effort: normal Respiratory: right: CTA, diminished - Breasts Breasts: normal - Cardiovascular Rhythm: regular Heart Sounds: Present: S1 & S2. Absent: gallop, rub Extremities: pulses intact, No edema, normal color, Full ROM - Gastrointestinal General gastrointestinal: Present: soft, non-tender, non-distended, normal bowel sounds - Integumentary Integumentary: clear, warm, dry - Musculoskeletal Musculoskeletal: 1, strength equal bilaterally - Neurologic Neurologic: moves all extremities - Psychiatric Psychiatric: memory intact, appropriate mood/affect, intact judgment & insight - Labs CBC & Chem 7: 09/20/17 05:19 09/20/17 05:19 Labs: Abnormal lab results 09/19/17 09/20/17 09/20/17 Range/Units 22:15 05:19 05:19 RBC 3.56 L (3.65-5.03) M/mm3 MCH 33 H (28-32) pg MCHC 35 H (30-34) % RDW 15.6 H (13.2-15.2) % Lymph % (Auto) 5.9 L (13.4-35.0) % Lymph # 0.4 L (1.2-5.4) K/mm3 Seg Neutrophils % 87.5 H (40.0-70.0) % Chloride 95.8 L (98-107) mmol/L BUN 25 H (7-17) mg/dL Glucose 140 H (65-100) mg/dL POC Glucose 193 H (70-105) Calcium 8.1 L (8.4-10.2) mg/dL 09/20/17 Range/Units 06:55 RBC (3.65-5.03) M/mm3 MCH (28-32) pg MCHC (30-34) % RDW (13.2-15.2) % Lymph % (Auto) (13.4-35.0) % Lymph # (1.2-5.4) K/mm3 Seg Neutrophils % (40.0-70.0) % Chloride (98-107) mmol/L BUN (7-17) mg/dL Glucose (65-100) mg/dL POC Glucose 133 H (70-105) Calcium (8.4-10.2) mg/dL
[2017-09-20] MEDS: APRESOLINE IV PRN (17:56)
[2017-09-21] MEDS: SOLU-Medrol IV SCH ×3 (05:49→17:00)
[2017-09-21 05:56] LABS: Hematocrit 35.8 % (30.3-42.9); Hemoglobin 12.2 gm/dl (10.1-14.3); Mean Corpuscular HGB Conc 34 % (30-34); Mean Corpuscular Hemoglobin 32 pg (28-32); Mean Corpuscular Volume 94 fl (79-97); Platelet Count 168 K/mm3 (140-440); Red Blood Count 3.79 M/mm3 (3.65-5.03); Red Cell Distribution Width 15.8 % (13.2-15.2)
[2017-09-21 06:21] LABS: Alanine Aminotransferase 31 units/L (7-56); Albumin 3.4 g/dL (3.9-5); BUN/Creatinine Ratio 43; Blood Urea Nitrogen 30 mg/dL (7-17); Calcium 8.4 mg/dL (8.4-10.2); Hemolysis Index 16
[2017-09-21] MEDS: HumaLOG SUB-Q SCH ×3 (08:00→16:30)
[2017-09-21] MEDS: DUONEB *Not for PRN Use IH SCH ×3 (09:46→16:09)
[2017-09-21] MEDS ORDERED: K-DUR PO SCH (10:00)
[2017-09-21] MEDS ORDERED: LASIX PO SCH (10:00)
[2017-09-21] MEDS: HABITROL TD SCH (11:28)
[2017-09-21] MEDS: SODIUM CHLORIDE FLUSH SYRINGE 10 ML IV SCH (11:30)
[2017-09-21] MEDS: ZESTRIL PO SCH (11:31)
[2017-09-21 11:32] VITALS: BP 173/76
[2017-09-21] MEDS: ATIVAN IV PRN ×2 (11:33→17:00)
[2017-09-21] MEDS: NORCO 5/325 PO PRN (12:03)
[2017-09-21 12:14] LABS: Basophils % (Manual) 0 % (0.0-1.8); Eosinophils % (Manual) 0 % (0.0-4.3); Large Platelets Rare; Platelet Estimate Consistent w Auto; RBC Morphology Normal; Total Cells Counted 100
--- NOTE | 2017-09-21 13:27 | Discharge Summary ---
Providers - Providers Date of Admission: 09/19/17 02:25 Date of discharge: 09/21/17 Attending physician: AIDE ALMANZA 09/19/17 05:55 Consult to Physician [CONS] Routine Comment: Consulting Provider: SHMUEL MCLAIN Physician Instructions: Reason For Exam: heme pos stool, afib/pe, off coumadin X 1 week Primary care physician: WARDROBE ATTENDANT Hospitalization Condition: Stable Hospital course: Patient is a 57 yo woman with a plethora of co-morbidities including Bipolar disorder, Afib, PE, DVT s/p IVC filter placed here 01/[address] Collier on Warfarin 7.5mg/day (says Xarelto caused worse bleeding), hypertension, NIDDM, CHF, COPD with chronic hypoxic respiratory failure on 2 liters at home (she admits to not using O2 as instructed because it is "filthy"), tobacco dependency , alcohol abuse with Beers and prior BZD/percocet addiction per patient (using Beers instead) who was just discharged from here on 09/14/17 with rectal bleeding (she was told no Warfarin per records). She comes back on 09/19/17 with sob, wheezing. She was diagnosis copd/chf exacerbation/heme positive stools. She was seen by GI, Dr. Richard. I have spoken with him==>Ok to resume short acting anticoagulate like Eliquis or Xarelto (would not recommend Warfarin), mostly likely hemorrhoidal bleeding with normal h/h (hemoglobin is 12.2). Discussed with patient, she ok Eliquis with coupon, she agrees to sign up for their patient's assistance. I have offered her the option to start Eliquis here and monitor for 24-48 hours but she declined because her sons are coming from out of town to come and get her. Discharge Diagnoses: Acute on chronic hypoxic respiratory failure: weaned o2 from 3.5 to baseline 2 Liters. Acute on chronic combined heart failure, fluid overload improved, legs size decreased Recurrent rectal bleeding with normal H/H, most likely hemorrhoidal Acute COPD exacerbation Tobacco dependency: counseling done Alcohol abuse, no signs of withdrawals H/O A. fib History of DVT, PE, s/p IVC filter in place Hypertension Diabetes mellitus type 2, controlled Bipolar Disorder, denies SI, HI Disposition: TO HOME OR SELFCARE Time spent for discharge: 32 minutes Core Measure Documentation - Palliative Care Palliative Care/ Comfort Measures: Not Applicable - Core Measures Any of the following diagnoses?: DVT/PE - VTE Discharge Requirements Deep Vein Thrombosis/Pulmonary Embolism Present on Admission: Yes Has pt received <5 days of overlap therapy or INR<2.0: No (rectal bleeding and then Eliquis) Anticoagulant overlap therapy prescribed at discharge: No Contraindication No Overlap Therapy order at DC: Not Indicated Exam - Physical Exam Narrative exam: GEN: WDWN, NAD, Awake, Alert, Orientated x 3 HEENT: NCAT, EOMI, PERRL, OP Clear NECK: supple, no adenopathy, no thyromegaly, no JVD CVS/HEART: irregular irregular, normal S1S2, pulses present bilaterally CHEST/LUNGS: CTA B, Symmetrical chest expansion, good air entry bilaterally GI/Abdomen: soft, NTND, good bowel sounds, no guarding or rebound /Bladder: no suprapubic tenderness, no CVA or paraspinal tenderness EXT/Skin: trace leg edema, no obvious rash MSK: FROM x 4 Neuro: CN 2-12 grossly intact, no new focal deficits Psych: calm, appears to have good insight and judgement - Constitutional Vitals: Temp Pulse Resp BP Pulse Ox 97.8 F 77 20 173/76 96 09/21/17 07:50 09/21/17 11:31 09/21/17 09:50 09/21/17 11:31 09/21/17 09:54 Plan Activity: other (no strenous activities) Diet: low salt, diabetic Special Instructions: smoking cessation Additional Instructions: I would go to Dr. Barrios's office for travel clearance and to check blood counts and check for rectal bleeding on Eliquis Follow up with: PRIMARY CARE, [Primary Care Provider] - 7 Days AMY MEDINA MD [Staff Physician] - 7 Days TAYLER RICHARD MD [Staff Physician] - 7 Days Prescriptions: Olanzapine [Zyprexa] 5 mg PO QHS PRN #30 tablet PRN Reason: Insomnia Acetaminophen [Acetaminophen TAB] 650 mg PO Q4H PRN #15 tablet PRN Reason: Pain MILD(1-3)/Fever >100.5/CORTES Apixaban [Eliquis] 2.5 mg PO BID #60 tablet HYDROcodone/APAP 5-325 [[place] 5-325 mg TAB] 1 each PO Q6H PRN #12 tablet PRN Reason: Pain , Severe (7-10) Metoprolol Xl [Metoprolol SUCCINATE ER TAB] 50 mg PO QDAY #30 tablet Nicotine [Habitrol] 21 mg TD QDAY #30 patch predniSONE [Deltasone] 20 mg PO QDAY #7 tablet traMADol [Ultram 50 MG tab] 50 mg PO Q8HR PRN #12 tablet PRN Reason: Pain Ipratropium/Albuterol Sulfate [DUONEB *Not for PRN Use*] 1 ampul IH QIDRT PRN # 30 ampul.neb PRN Reason: Shortness Of Breath
== END 2017-09-21 18:40 | disposition home or self-care (01) | DRG 393 ==
LOC: ED 22:03 → 4A 09-19 02:25
PROVIDERS: ADMIT Internal Medicine; ATTEND Internal Medicine
PROC: 3E0234Z Introduction of Serum, Toxoid and Vaccine into Muscle, Percutaneous Approach (ICD-10-PCS; principal; 2017-09-19)
DX: K64.9 Unspecified hemorrhoids (principal); I50.43 Acute on chronic combined systolic (congestive) and diastolic (congestive) heart failure; J96.21 Acute and chronic respiratory failure with hypoxia; J44.1 Chronic obstructive pulmonary disease with (acute) exacerbation; F31.9 Bipolar disorder, unspecified; I48.91 Unspecified atrial fibrillation; I11.0 Hypertensive heart disease with heart failure; E11.9 Type 2 diabetes mellitus without complications; F17.200 Nicotine dependence, unspecified, uncomplicated; F10.10 Alcohol abuse, uncomplicated; E66.01 Morbid (severe) obesity due to excess calories; Z91.041 Radiographic dye allergy status; Z86.711 Personal history of pulmonary embolism; Z86.718 Personal history of other venous thrombosis and embolism; Z71.6 Tobacco abuse counseling; Z68.30 Body mass index [BMI] 30.0-30.9, adult; Z79.899 Other long term (current) drug therapy; Z23 Encounter for immunization; Z99.81 Dependence on supplemental oxygen; Z90.710 Acquired absence of both cervix and uterus; Z82.49 Family history of ischemic heart disease and other diseases of the circulatory system
CPT/HCPCS: 36415; 71045; 80048; 80053; 82550; 82553; 82962; 83880; 84484; 85007; 85025; 85610; 85730; 87040; 90732; 93005; 93010; 94640; 94760; 96365; 96375; 99406; J0360; J1170; J1815; J1940; J1956; J2060; J2920; J2930